=== PATIENT | male | born 1975 | race Two or more races ===

== ENCOUNTER → 2020-06-01 10:41 | Outpatient (BNVA) | payer MEDICAID, SELFPAY | PROVIDERS: PCP Registered Nurse Psychiatric/Mental Health, Adult; Visit Provider Nurse Practitioner Family ==

== ENCOUNTER 2020-09-16 08:48 | Emergency (ER) | payer MEDICAID, SELFPAY ==
--- NOTE | ~2020-09-16 | CT_ITS ---
EXAMINATION: CT HEAD WITHOUT CONTRAST CLINICAL INFORMATION: Dizziness and headache. COMPARISON: None TECHNIQUE: Contiguous axial imaging was performed from the skull base to vertex without intravenous administration of contrast. This CT examination was performed using dose optimization techniques as appropriate, variously including the following: *Automated exposure control *Adjustment of mA and/or kV according to patient size (this includes techniques or standardized protocols for targeted exams where dose is matched to indication/reason for exam; i.e. extremities or head) *Use of iterative reconstruction technique DLP: 705 mGy-cm FINDINGS: There is no evidence of acute intracranial hemorrhage or territorial infarction. No abnormal mass effect or midline shift is seen. [place] to white matter differentiation is well preserved. No extra-axial fluid collections are identified. Posterior to pineal gland is mild linear irregularity question thickening of the dura. The ventricles are normal in size. There is no abnormal attenuation within the brain parenchyma. The osseous structures and soft tissues are normal. The mastoid air cells and visualized portions of the paranasal sinuses are well aerated. CT/CT head/brain wo con IMPRESSION: No acute intracranial process seen.
[2020-09-16 09:11] VITALS: BP 131/84; PULSE 65; RESP 16; TEMP 36.7; O2SAT 98; BMI 29.2
--- NOTE | 2020-09-16 09:17 | ED_ITS ---
HPI - Dizziness General Chief Complaint: Eye Problems Stated Complaint: General Medical Time Seen by Provider: 09/16/20 09:17 Source: patient Mode of arrival: ambulatory Limitations: no limitations History of Present Illness HPI Narrative: 45 yo male here with dizziness since waking at 4am, headache took jerome OBRIEN elicited complaint: dizziness and other (eye pain, headaches feels he cannot focus) Pertinent past history: other (poor vision - has noted his vision has worsened x several months has not been checked out by his eye doctor recently) Onset (ago): day(s) (onset of poor vision x several months but dizziness and inability to focus woke up at 4am with symptoms was normal before bed) Timing: gradual onset and awoke with symptoms Severity: moderate Description: lightheadedness and other (feels his vision is blurry) History of similar symptoms: Yes Exacerbating factors: nothing Relieving factors: nothing Associated symptoms: other (headache, blurry vision, eye pain) Associated neuro symptoms: vision changes (feels he cannot focus) Related Data Home Medications Medication Instructions Recorded Confirmed omega-3 fatty acids 1,000 mg 1,000 mg PO DAILY 06/01/20 06/01/20 capsule vitamin E 100 unit/0.25 mL oral unit PO 06/01/20 06/01/20 drops Previous Rx's Medication Instructions Recorded zkpitrplbk-wqhjxfkfrkorg-lifn 1 tab PO Q6H PRN #20 tab 09/16/20 meclizine 25 mg PO TID PRN #30 tab 09/16/20 Allergies Allergy/AdvReac Type Severity Reaction Status Date / Time No Known Allergies Allergy Unverified 01/01/20 15:52 [No Known Allergies*] Review of Systems Review of Systems: Constitutional : No Fever, No Chills, No Fatigue ENT/Mouth : No sore throat, No Rhinorrhea Eyes: pos Eye Pain, No Swelling, No Redness, pos diff focus Cardiovascular : No Chest Pain, No SOB, No Dyspnea on Exertion Respiratory : No Cough, No Sputum Gastrointestinal : No Nausea, No Vomiting, No Diarrhea, No abdominal Pain Genitourinary : No Dysuria, No Urinary Frequency, No Hematuria, Musculoskeletal : No joint pain, No Myalgias, No Joint Swelling Skin : No Skin Lesions, No rash Neuro : No Weakness, No Numbness, No Dizziness, positive Headache Psych : No Anxiety/Panic, No Depression Heme/Lymph: No Bruising, No Bleeding,No Lymphadenopathy Endocrine : No Polyuria, No Polydipsia All other systems reviewed and are negative [facility] Past Medical History Attestation statement: The following information was validated with the patient. Medical History Diabetes HTN (hypertension) Social History Social History Alcohol intake: never Patient Tobacco Use Status: Never used Tobacco Use of substances other than those prescribed or required for medical reasons: No Advance Directives: No Advance Directives Information Provided: No Physical Exam Vital Signs: Vital Signs: Last Vital Signs Temp 98.0 F 09/16/20 09:44 Pulse 66 09/16/20 09:44 Resp 16 09/16/20 09:44 BP 131/84 09/16/20 09:44 Pulse Ox 100 09/16/20 09:44 Body Mass Index 29.2 Appearance: Alert. Oriented X3. No acute distress. Eyes: Pupils equal, round and reactive to light. no pain to palpation of eyes, no vision changes on exam ENT: Pharynx normal. Neck: Normal inspection. Neck supple. CVS: Normal heart rate and rhythm. Pulses normal. Respiratory: No respiratory distress. Breath sounds normal. Abdomen: Soft and nontender. Skin: Skin warm and dry. Normal skin color. Normal skin turgor. Extremities: No lower extremity edema. No calf ttp Neuro: Oriented X 3. No motor deficit. No sensory deficit. no ataxia steady gait Course Course Course Narrative: R eye pressure 14 L eye pressure 16 R eye with glasses 20/70 L eye with glasses 20/50 feels much better but worse if he puts his glasses on - old prescription has had issues with his eyes for month suspect this is due to his outdated Rx - stable for DC MDM - Dizziness MDM Narrative Medical decision making narrative: 45 yo male with HTN, preidabetic here with dizzy, eye pressure and feels he cannot focus has normal neuro exam, awoke with symptoms at 4am, very vague no acute findings, will obtain basic labs, EKG, CT head, eye pressures, dispo per results and findings. Lab Data Result diagrams: 09/16/20 09:39 09/16/20 09:39 Labs: Lab Results 06/07/0409/16/20 09/16/20 Range/Units 09:39 09:39 09:39 WBC 5.0 (4.8-10.8) X10*3/uL RBC 4.40 L (4.60-5.80) X10*6/uL Hgb 13.2 L (14.0-18.0) g/dl Hct 40.7 L (42-52) % MCV 92.5 (80-98) fL MCH 30.0 (27.0-33.0) pg MCHC 32.4 (31.0-36.0) g/dl RDW 12.8 (11.0-16.0) % Plt Count 225 (160-400) X10*3/uL MPV 10.3 (9.4-12.4) fL Immature Gran % (Auto) 0.2 (0.0-0.4) % Neut % (Auto) 54.9 (45-73) % Lymph % (Auto) 32.3 (20-40) % [place] % (Auto) 8.2 (2-11) % Eos % (Auto) 3.8 (0-4) % Baso % (Auto) 0.6 (0-2) % Lymph # (Auto) 1.6 (1.2-4.9) X10*3/uL [place] # (Auto) 0.4 (0.1-1.2) X10*3/uL Eos # (Auto) 0.2 (0.0-0.4) X10*3/uL Baso # (Auto) 0.0 (0.0-0.2) X10*3/uL Abs Immat Gran (auto) 0.01 (0.00-0.03) X10*3/uL Absolute Neuts (auto) 2.8 (2.0-8.3) X10*3/uL Absolute Nucleated RBC 0.000 (0.0-0.012) X10*3/uL Nucleated RBC % (auto) 0.0 (0.0-0.2) /100WBC Hold Blue Top SEE NOTE Sodium 136 (135-145) mmol/L Potassium 3.8 (3.3-5.1) mmol/L Chloride 103 (96-108) mmol/L Carbon Dioxide 26 (22-29) mmol/L Anion Gap 11 L (12-20) BUN 17 H (9-16) mg/dL Creatinine 0.99 (0.5-1.4) mg/dL Estim Creat Clear Calc 108.6 Estimated GFR > 60 Random Glucose 110 (60-115) mg/dL Calcium 9.5 (8.4-10.2) mg/dL Magnesium 1.9 (1.6-2.6) mg/dL ECG Data Attestation: I personally reviewed and interpreted this ECG as follows: ECG interpretation date: 09/16/20 ECG interpretation time: 09:33 Interpretation: Rate: 60 Rhythm: NSR [place]: normal Normal P waves. Normal DESTINEY. Normal QRS complex. ST T wave : normal no MARCEL qTC: normal prior studies: no acute ischemia The study has been interpreted contemporaneously by me. . Discharge Plan Discharge Clinical Impression: Dizziness Headache Qualifiers: Headache type: unspecified Headache chronicity pattern: acute headache Intra ctability: not intractable Qualified Code(s): R51.9 - Headache, unspecified Patient Disposition: Home, Self-Care Instructions: Acute Headache (ED), Dizziness (ED) Additional Instructions: return to ED for any worsening symptoms or concerns Prescriptions: New wrerfaaukq-jwqnmeovihymw-oebu 50-325-40 mg tablet 1 tab PO Q6H PRN (Reason: pain) Qty: 20 RF: 0 meclizine 25 mg tablet 25 mg PO TID PRN (Reason: dizziness) Qty: 30 RF: 0 No Action omega-3 fatty acids [Fish Oil Concentrate] 1,000 mg capsule 1,000 mg PO DAILY RF: 0 vitamin E 100 unit/0.25 mL drops PO RF: 0 Referrals: Fidel Alba [Physician] - 1 week (try to call for available appointment) Stand Alone Forms: Work/School Release Discharge Date/Time: 09/16/20 12:01
--- NOTE | 2020-09-16 09:18 | ECG_ITS ---
Test Reason : EYE PROBLEM Blood Pressure : / mmHG Vent. Rate : 060 BPM Atrial Rate : 060 BPM P-R Int : 174 ms QRS Dur : 090 ms QT Int : 420 ms P-R-T Axes : 040 030 013 degrees QTc Int : 420 ms Normal sinus rhythm Normal ECG When compared with ECG of 12-NOV-2017 15:21, No significant change was found Referred By: Marion Jack Electronically Signed By:Javier Andujar
[2020-09-16] MEDS: Tetracaine HCl/PF 0.5% Oph Sol 4 ML DROPS 3 DROP EYE-BOTH (09:38)
[2020-09-16] MEDS: Meclizine HCl 25 MG TABLET PO (09:38)
[2020-09-16 09:44] VITALS: BP 131/84; PULSE 66; RESP 16; TEMP 36.7; O2SAT 100
[2020-09-16 09:44] LABS: MANUAL DIFF FLAG NO
[2020-09-16 09:47] LABS: Basophils Percent Auto 0.6 % (0-2); Eosinophils Absolute Auto 0.2 X10*3/uL (0.0-0.4); Eosinophils Percent Auto 3.8 % (0-4); Hematocrit 40.7 % (42-52); Hemoglobin 13.2 g/dl (14.0-18.0); Imm Gran Abs Auto 0.01 X10*3/uL (0.00-0.03); Imm Gran Pct Auto 0.2 % (0.0-0.4); Lymphocytes Absolute Auto 1.6 X10*3/uL (1.2-4.9); Lymphocytes Percent Auto 32.3 % (20-40); Mean Corpuscular HGB Conc 32.4 g/dl (31.0-36.0); Mean Corpuscular Volume 92.5 fL (80-98); Mean Platelet Volume 10.3 fL (9.4-12.4); Monocytes Absolute Auto 0.4 X10*3/uL (0.1-1.2); Monocytes Percent Auto 8.2 % (2-11); Neutrophils Absolute Auto 2.8 X10*3/uL (2.0-8.3); Neutrophils Percent Auto 54.9 % (45-73); Platelet Count 225 X10*3/uL (160-400); Red Cell Distribution Width 12.8 % (11.0-16.0)
--- NOTE | 2020-09-16 09:53 | PC.NURSE ---
r-14 l-16 eye pressure measurement
[2020-09-16 10:14] LABS: Anion Gap 11 (12-20); Blood Urea Nitrogen 17 mg/dL (9-16); Calcium 9.5 mg/dL (8.4-10.2); Carbon Dioxide 26 mmol/L (22-29); Chloride 103 mmol/L (96-108); Creatinine Clr Calc Pharmacy 108.6; Estimated Glomerular Filt Rate > 60; Glucose Random 110 mg/dL (60-115); Magnesium 1.9 mg/dL (1.6-2.6); Potassium 3.8 mmol/L (3.3-5.1); Sodium 136 mmol/L (135-145)
[2020-09-16] MEDS: Butalb/Acetamin/Caff 50/325/40 TABLET 1 TAB PO (11:12)
== END 2020-09-16 12:01 | disposition home or self-care (01) ==
PROVIDERS: Emergency Provider Emergency Medicine
DX: R42 Dizziness and giddiness (principal); R51.9 Headache, unspecified; Z79.899 Other long term (current) drug therapy
CPT/HCPCS: 36415; 70450; 80048; 83735; 85025; 93005; 99284

== ENCOUNTER → 2020-12-14 11:38 | Outpatient (BNVA) | payer MEDICAID, SELFPAY | PROVIDERS: PCP Registered Nurse Psychiatric/Mental Health, Adult; Visit Provider Nurse Practitioner Family ==

== ENCOUNTER 2021-02-07 09:30 | Emergency (ER) | payer MEDICAID, SELFPAY ==
[2021-02-07 09:39] VITALS: BP 147/100; PULSE 67; RESP 18; TEMP 36.1; O2SAT 96; BMI 34.5
--- NOTE | 2021-02-07 10:18 | ED.GENADULT ---
HPI - General Adult General Chief complaint: Dental/Oral Stated complaint: Dental pain Time Seen by Provider: 02/07/21 10:30 Source: patient Mode of arrival: ambulatory Limitations: no limitations History of Present Illness HPI narrative: Patient presents to ED for left lower molar pain the past 3-4 days. Patient denies any facial swelling, recent trauma, fever, chills, headache, nausea, vomiting, neck swelling, drooling, change in voice, chest pain, shortness of breath. He does not have a dentist. Related Data Home Medications Medication Instructions Recorded Confirmed omega-3 fatty acids 1,000 mg 1,000 mg PO DAILY 06/01/20 12/14/20 capsule (Fish Oil Concentrate) vitamin E 100 unit/0.25 mL oral unit PO 06/01/20 12/14/20 drops Previous Rx's Medication Instructions Recorded oiybktobuh-rcnvbdjwuapwr-flmrjvhm 1 tab PO Q6H PRN #20 tab 09/16/20 50 mg-325 mg-40 mg tablet meclizine 25 mg tablet 25 mg PO TID PRN #30 tab 09/16/20 amoxicillin 500 mg capsule 500 mg PO TID 10 Days #30 cap 02/07/21 naproxen 500 mg tablet 500 mg PO BID PRN #20 tab 02/07/21 Allergies Allergy/AdvReac Type Severity Reaction Status Date / Time No Known Allergies Allergy Verified 12/14/20 11:38 [No Known Allergies*] Review of Systems Review of Systems: Yes all other systems are reviewed and are negative Constitutional: Constitutional: Reports as per HPI and Reports no additional constitutional complaints Eyes: Eyes: Reports as per HPI and Reports no additional eye complaints ENT: Reports system reviewed and no additional complaints, except as documented and Reports as per HPI Comments: Dental pain Cardiovascular: Cardiovascular: Reports as per HPI and Reports no additional cardiovascular complaints Respiratory: Respiratory: Reports as per HPI and Reports no additional respiratory complaints Gastrointestinal: Gastrointestinal: Reports as per HPI and Reports no additional gastrointestinal complaints Musculoskeletal: Musculoskeletal: Reports no additional musculoskeletal complaints Neurologic: Reports system reviewed and no additional complaints, except as documented and Reports as per HPI Psychiatric: Psychiatric: Reports no additional psychiatric complaints and Reports as per HPI PMFSH Past Medical History Medical History Diabetes HTN (hypertension) Social History Social History Alcohol intake: never Patient Tobacco Use Status: Never used Tobacco Advance Directives: Yes Advance Directives Information Provided: Yes Advance Directives on File: No Physical Exam Vital Signs: Vital Signs: Last Vital Signs Temp 97.0 F 02/07/21 09:39 Pulse 67 02/07/21 09:39 Resp 18 02/07/21 09:39 BP 147/100 H 02/07/21 09:39 Pulse Ox 96 02/07/21 09:39 Body Mass Index 34.5 Const: General: cooperative, healthy appearing, comfortable, no acute distress, well developed, alert, awake and Physically active Orientation/consciousness: patient oriented x3 HENMT: Head: Yes normal to inspection, Yes No palpable skull fracture present, Yes normocephalic, Yes atraumatic and No abrasion Teeth image: 1. Tender on palpation. Negative for any crack or pus and tooth. Negative for any pus discharge or erythema/swelling of the gum. Throat: Yes posterior oropharynx normal, Yes tonsils normal and Yes uvula midline Eyes: General: appearance normal, both eyes and all related structures Neck: Neck: Yes normal visual inspection, Yes full ROM, Yes no lymphadenopathy, Yes no meningeal signs, Yes trachea midline, Yes supple, No anterior neck swelling and No tender Chest: Chest palpation & inspection: normal inspection of the chest and normal palpation of entire chest wall Resp: Effort & Inspection: normal respiratory effort and able to speak in complete sentences Auscultation: clear to auscultation bilaterally, no crackles, no rales, no rhonchi and no wheezes Cardio: Jugular venous distension: no JVD Heart sounds: S1 normal heart sound present and S2 normal heart sound present GI: Inspection: Yes normal to inspection and No abdominal wall ecchymosis Palpation (GI): not firm, nontender, no guarding and not rigid : General: No CVA tenderness and Yes no CVA tenderness Back/Spine/Pelvis: Back: no CVA tenderness, No CVA tenderness and No back tenderness Skin: General skin exam: no rashes or lesions noted and elasticity normal Neuro: General: patient oriented x3, gait normal, no meningeal signs and CN's II-XI intact bilaterally Cranial nerves: Yes CN's II-XII intact bilaterally Extrem: General: Yes normal to inspection and Yes full ROM Psych: Appearance: grossly normal, well kempt and not disheveled Course Course Course Narrative: Patient nontoxic-appearing stable Reevaluation(s) Reevaluation #1: Not suspecting any retropharyngeal abscess, Nicholas angina, or any oral/facial abscess. Patient will be treated with antibiotic and pain medication. Patient given list of dentists. Time: 10:24 Medical Decision Making MDM Narrative Medical decision making narrative: Dental pain Discharge Plan Discharge Clinical Impression: Toothache Patient Disposition: Home, Self-Care Instructions: Toothache (ED) Additional Instructions: You will be discharge with antibiotic and pain medication for tooth pain. Please follow-up with list of dentists that was given to you for follow-up. Return to the ED for any facial swelling, worsening pain, drooling, change in voice, chest pain, neck swelling, shortness of breath, or any other concerning symptoms. Prescriptions: New amoxicillin 500 mg capsule 500 mg PO TID 10 Days Qty: 30 RF: 0 naproxen 500 mg tablet 500 mg PO BID PRN (Reason: pain) Qty: 20 RF: 0 No Action oauhqngpcd-xorxznduvbgyd-pqxg 50-325-40 mg tablet 1 tab PO Q6H PRN (Reason: pain) Qty: 20 RF: 0 meclizine 25 mg tablet 25 mg PO TID PRN (Reason: dizziness) Qty: 30 RF: 0 omega-3 fatty acids [Fish Oil Concentrate] 1,000 mg capsule 1,000 mg PO DAILY RF: 0 vitamin E 100 unit/0.25 mL drops PO RF: 0 Stand Alone Forms: Work/School Release Interventions: ED Discharge Assessment Last Done: 02/07/21 10:46 Discharge Date/Time: 02/07/21 10:47 Print Language: Hungarian
== END 2021-02-07 10:47 | disposition home or self-care (01) ==
PROVIDERS: Emergency Provider Emergency Medicine; PCP Nurse Practitioner Primary Care
DX: K08.89 Other specified disorders of teeth and supporting structures (principal); E11.9 Type 2 diabetes mellitus without complications; I10 Essential (primary) hypertension
CPT/HCPCS: 99283

== ENCOUNTER 2021-06-03 11:08 | Emergency (ER) | payer MEDICAID, SELFPAY ==
[2021-06-03 11:23] VITALS: BP 136/72; PULSE 74; RESP 18; TEMP 36.9; O2SAT 98; BMI 29.9
== END 2021-06-03 16:41 | disposition left against medical advice (07) ==
PROVIDERS: Emergency Provider Emergency Medicine; PCP Nurse Practitioner Primary Care
DX: S09.90XA Unspecified injury of head, initial encounter (principal); Y00.XXXA Assault by blunt object, initial encounter; Y93.9 Activity, unspecified; Y92.9 Unspecified place or not applicable; Y99.9 Unspecified external cause status
CPT/HCPCS: 99281; 99282

== ENCOUNTER → 2021-06-10 20:49 | Outpatient (REF) | payer MEDICAID, SELFPAY | LOC: HO.SL 20:49 | PROVIDERS: PCP Nurse Practitioner Primary Care; Visit Provider Nurse Practitioner Family | DX: G47.33 Obstructive sleep apnea (adult) (pediatric) (principal) | CPT/HCPCS: 95811 ==

== ENCOUNTER 2022-10-26 09:31 | Outpatient (REF) | payer MEDICAID, SELFPAY ==
[2022-10-26 12:11] LABS: Estimated Average Glucose 114 mg/dL; Hemoglobin A1c % 5.6 %
[2022-10-26 12:12] LABS: Cholesterol 205 mg/dL; HDL Cholesterol 35 mg/dL; LDL Cholesterol Calculated 139 mg/dl; Triglycerides 155 mg/dL
== END 2022-10-26 09:32 | disposition home or self-care (01) ==
LOC: HO.HHCL 09:31
PROVIDERS: Visit Provider Nurse Practitioner Primary Care
DX: E78.1 Pure hyperglyceridemia (principal); R73.01 Impaired fasting glucose
CPT/HCPCS: 36415; 80061; 83036

== ENCOUNTER 2023-04-17 14:18 | Emergency (ER) | payer MEDICAID, SELFPAY ==
[2023-04-17 15:08] VITALS: BP 142/92; PULSE 70; RESP 18; TEMP 36.3; O2SAT 97
[2023-04-17 18:10] LABS: MANUAL DIFF FLAG NO
[2023-04-17 18:25] LABS: Basophils Percent Auto 0.5 % (0-2); Eosinophils Absolute Auto 0.2 X10*3/uL (0.0-0.4); Eosinophils Percent Auto 3.3 % (0-4); Hematocrit 42.6 % (42.0-52.0); Imm Gran Abs Auto 0.03 X10*3/uL (0.00-0.03); Imm Gran Pct Auto 0.5 % (0.0-0.4); Lymphocytes Absolute Auto 2.6 X10*3/uL (1.2-4.9); Lymphocytes Percent Auto 39.9 % (20-40); Mean Corpuscular HGB Conc 32.9 g/dl (31.0-36.0); Mean Corpuscular Hemoglobin 30.3 pg (27.0-33.0); Mean Corpuscular Volume 92.2 fL (80.0-98.0); Mean Platelet Volume 10.7 fL (9.4-12.4); Monocytes Absolute Auto 0.5 X10*3/uL (0.1-1.2); Monocytes Percent Auto 7.6 % (2-11); Neutrophils Absolute Auto 3.2 x10*3/uL (2.0-8.3); Neutrophils Percent Auto 48.2 % (45-73); Platelet Count 255 X10*3/uL (160-400); Red Blood Count 4.62 X10*6/uL (4.60-5.80); Red Cell Distribution Width 13.3 % (11.0-16.0); White Blood Count 6.6 X10*3/uL (4.8-10.8)
[2023-04-17 18:26] LABS: Alanine Aminotransferase 20 U/L (0-40); Albumin Level 4.4 g/dL (3.5-5.0); Alkaline Phosphatase 78 U/L (39-117); Anion Gap 14 (12-20); Aspartate Amino Transferase 21 U/L (5-37); Bilirubin Total 0.5 mg/dL (0.0-1.0); Blood Urea Nitrogen 16 mg/dL (9-16); Calcium 9.7 mg/dL (8.4-10.2); Carbon Dioxide 28 mmol/L (22-29); Chloride 102 mmol/L (96-108); Creatinine Clr Calc Pharmacy 99.2; Estimated Glomerular Filt Rate > 60; Glucose Random 99 mg/dL (60-115); Sodium 140 mmol/L (135-145); Total Protein 9.8 g/dL (6.5-8.0)
[2023-04-17 18:44] LABS: IDNOW Serial# 6674DD1D; Strep A Nucleic Acid Negative (Negative)
[2023-04-17 18:44] LABS: COVID-19 Test Negative (Negative); IDNOW Serial# 08D9AD1C; IDNOW Serial# 9DB6401D; Influenza A Negative (Negative); Influenza B2 Negative (Negative)
[2023-04-18 02:32] VITALS: BP 131/84; PULSE 62; RESP 16; TEMP 36.7; O2SAT 97
--- NOTE | 2023-04-18 02:33 | PC.NURSE ---
Pt offered Tylenol and refused at this time.
--- NOTE | 2023-04-18 05:19 | ED.GENADULT ---
HPI - General Adult General Chief complaint: Fall Stated complaint: Fall/Bilateral leg pain/Trouble swallowing Time Seen by Provider: 04/18/23 04:12 Source: patient and family Mode of arrival: ambulatory History of Present Illness HPI narrative: This is a 48-year-old male who presents with symptoms since 2014 of winter time syncopal episodes. Patient states that he has been evaluated by Neurology, Cardiology, but they can not find anything . He denies any associated fever, chills, nausea, vomiting or any other GI or symptoms. Patient states that he laughs or coughs and then falls down. Patient reports that he has fallen twice without head strike and does not recall the event. Patient endorses that he saw his primary care doctor 2 weeks ago. On further discussion he does endorse that he is under a tremendous amount of stress in acknowledges that there may be a component of anxiety though he denies having suffered from this previously and states that despite this stress he just keeps that all inside . Related Data Home Medications Medication Instructions Recorded Confirmed omega-3 fatty acids 1,000 mg 1,000 mg PO DAILY 06/01/20 12/14/20 capsule (Fish Oil Concentrate) vitamin E 100 unit/0.25 mL oral unit PO 06/01/20 12/14/20 drops Previous Rx's Medication Instructions Recorded yenxpowxvd-fumcpcddvhbrz-ramnvycd 1 tab PO Q6H PRN pain #20 tabs 09/16/20 50 mg-325 mg-40 mg tablet meclizine 25 mg tablet 25 mg PO TID PRN dizziness #30 tabs 09/16/20 amoxicillin 500 mg capsule 500 mg PO TID 10 days #30 caps 02/07/21 naproxen 500 mg tablet 500 mg PO BID PRN pain #20 tabs 02/07/21 Allergies Allergy/AdvReac Type Severity Reaction Status Date / Time No Known Allergies Allergy Verified 12/14/20 11:38 [No Known Allergies*] Review of Systems Review of Systems: Pertinent positives and negatives as stated in the [facility] Past Medical History Source: nursing notes reviewed Onset Date is defined in the Problem List Problems that require an onset date and time if occurred within 24 hrs of arrival to the ED Aortic Dissection and Rupture; Neurologic impairment; Cardiopulmonary Arrest; Endotracheal Intubation; Insertion or Replacement of Mechanical Circulatory Assist Device Medical History Diabetes HTN (hypertension) Social History Social History Alcohol intake: never Patient Tobacco Use Status: Never used Tobacco Advance Directives: No Advance Directives Information Provided: No Physical Exam ED Vital Signs: Vital Signs - 24 hr 04/17/23 15:08 04/18/23 02:32 Temperature 97.4 F 98.0 F Pulse Rate 70 62 Respiratory Rate 18 16 Blood Pressure 142/92 H 131/84 Pulse Oximetry 97 97 Oxygen Delivery Method Room Air Room Air BMI result Body Mass Index 30.0 VITAL SIGNS: Reviewed. GENERAL: Well developed, well nourished, in no acute distress. HEAD: Normocephalic/atraumatic EYES: PERRLA, EOMI intact without pain, no nystagmus/pallor/icterus noted EARS: Ext canals without abnormality, TMs non-bulging and non-erythematous NOSE: Nares patent bilateral OROPHARYNX: no oral lesions noted, posterior pharynx clear and non-erythematous without noted tonsillar enlargement/erythema/exudates NECK: Supple, no adenopathy LUNGS: Normal breath sounds. No adventitious sounds or accessory muscle use. SpO2<97> CARDIOVASCULAR: Regular rate and rhythm without noted murmurs, no JVD or lower extremity edema. ABDOMEN: Soft, non-tender, non-distended with bowel sounds. No rigidity. No guarding. No palpable masses or hernias noted MUSCULOSKELETAL: No tenderness, deformities, or effusions noted on gross inspection. EXTREMITIES: No cyanosis, clubbing or edema. SKIN: Inspection of the skin reveals no rashes, ulcerations, jaundice, pallor, or petechiae. NEUROLOGIC: Alert and oriented x 4. Strength and sensation to light touch were grossly intact x 4, no facial asymmetry, no pronator drift, cranial nerves 2-12 are grossly intact. Medical Decision Making Medical Decision Making MDM Narrative: 48-year-old male with history and clinical presentation suspicious for panic attack or panic disorder, there is also the possibility SAD. Do seem that patient has been worked up previously by both Neurology and Cardiology with whom I would suspect would be the primary specialties for patient's current condition. There are no clinical findings to suggest underlying neurologic dysfunction such as ALS. I reviewed all investigations and hematologic indices are grossly within normal limits without any noted derangements. On review of all chemistry indices they were grossly within normal limits although there is a noted protein level of 9.8. Viral serology to include rapid strep is negative. My interpretation is that patient is suffering from a component of stress/panic disorder but given the elevated protein levels there are alternate medical conditions that could be explored although unsure of history. I have lower clinical suspicion for something like multiple myeloma without any corresponding bony pain or laboratory findings of anemia, there is a possibility of MGUS or other antibody related issue. However, it was explained to the patient that there is no further workup indicated here and he was strongly encouraged to follow-up with his primary care doctor in reassured that I would be copying my note over to that provider and that he should also consider his current stress levels and that it was unhealthy to hold all of that inside. He is otherwise well appearing and hemodynamically stable. There are no neurologic findings. Differential Diagnosis Differential Diagnoses: The differential diagnosis associated with the presentation includes Please see the discussion above Admission/Observation Consideration of admission/observation: Escalation of care including admission/observation considered Please see the discussion above Lab Data MDM Lab Attestation statement: I reviewed the patient's lab results. Please see the discussion above 04/17/23 18:03 04/17/23 18:03 Labs: Lab Results 04/17/23 04/17/23 Range/Units 18:03 18:11 WBC 6.6 (4.8-10.8) X10*3/uL RBC 4.62 (4.60-5.80) X10*6/uL Hgb 14.0 (14.0-18.0) g/dl Hct 42.6 (42.0-52.0) % MCV 92.2 (80.0-98.0) fL MCH 30.3 (27.0-33.0) pg MCHC 32.9 (31.0-36.0) g/dl RDW 13.3 (11.0-16.0) % Plt Count 255 (160-400) X10*3/uL MPV 10.7 (9.4-12.4) fL Immature Gran % (Auto) 0.5 H (0.0-0.4) % Neut % (Auto) 48.2 (45-73) % Lymph % (Auto) 39.9 (20-40) % [place] % (Auto) 7.6 (2-11) % Eos % (Auto) 3.3 (0-4) % Baso % (Auto) 0.5 (0-2) % Lymph # (Auto) 2.6 (1.2-4.9) X10*3/uL [place] # (Auto) 0.5 (0.1-1.2) X10*3/uL Eos # (Auto) 0.2 (0.0-0.4) X10*3/uL Baso # (Auto) 0.0 (0.0-0.2) X10*3/uL Abs Immat Gran (auto) 0.03 (0.00-0.03) X10*3/uL Absolute Neuts (auto) 3.2 (2.0-8.3) x10*3/uL Absolute Nucleated RBC 0.000 (0.0-0.012) X10*3/uL Nucleated RBC % (auto) 0.0 (0.0-0.2) /100WBC Sodium 140 (135-145) mmol/L Potassium 4.0 (3.3-5.1) mmol/L Chloride 102 (96-108) mmol/L Carbon Dioxide 28 (22-29) mmol/L Anion Gap 14 (12-20) BUN 16 (9-16) mg/dL Creatinine 1.06 (0.5-1.4) mg/dL Estim Creat Clear Calc 99.2 Estimated GFR > 60 Random Glucose 99 (60-115) mg/dL Calcium 9.7 (8.4-10.2) mg/dL Total Bilirubin 0.5 (0.0-1.0) mg/dL AST 21 (5-37) U/L ALT 20 (0-40) U/L Alkaline Phosphatase 78 (39-117) U/L Total Protein 9.8 H (6.5-8.0) g/dL Albumin 4.4 (3.5-5.0) g/dL COVID-19 (ANGELITO) Negative (Negative) COVID-19 Clin Com See Note Influenza Type A (GARCIA) Negative (Negative) Influenza Type B (GARCIA) Negative (Negative) Influenza A & B Note See Note S. pyogenes GrpA GARCIA Negative (Negative) External Record Review External record reviewed: Outpatient record, Prior outpatient labs and Prior outpatient radiology Critical Care Time Critical Care Time Critical Care Time: Yes Total Critical Care Time: 30 Attestation: I personally attest to this time spent taking care of the patient. Discharge Plan Discharge Clinical Impression: Anxiety, Stress, Panic attack Patient Disposition: Home, Self-Care Instructions: Stress (ED), Panic Disorder (ED), Anxiety (ED) Additional Instructions: 1. I strongly recommend follow-up with your primary care doctor for further evaluation regarding your symptoms and the possibility that this is associated with anxiety and stress. Your workup here today did not demonstrate any evidence of electrolyte abnormalities, infection, or anemia. Prescriptions: No Action qwhexctzhn-brfldtpwnzwow-wjxf 50-325-40 mg tablet 1 tab PO Q6H PRN (Reason: pain) Qty: 20 0RF meclizine 25 mg tablet 25 mg PO TID PRN (Reason: dizziness) Qty: 30 0RF amoxicillin 500 mg capsule 500 mg PO TID 10 Days Qty: 30 0RF naproxen 500 mg tablet 500 mg PO BID PRN (Reason: pain) Qty: 20 0RF omega-3 fatty acids [Fish Oil Concentrate] 1,000 mg capsule 1,000 mg PO DAILY vitamin E 100 unit/0.25 mL drops PO Referrals: Amy Moody, [employer] [Primary Care Provider] - Stand Alone Forms: Work/School Release Interventions: ED Discharge Assessment Last Done: 04/18/23 05:43 Discharge Date/Time: 04/18/23 05:48
== END 2023-04-18 05:48 | disposition home or self-care (01) ==
PROVIDERS: Emergency Provider Student in an Organized Health Care Education/Training Program; PCP Nurse Practitioner Primary Care
DX: F41.9 Anxiety disorder, unspecified (principal); F43.9 Reaction to severe stress, unspecified; F41.0 Panic disorder [episodic paroxysmal anxiety]; Z11.52 Encounter for screening for COVID-19; E11.9 Type 2 diabetes mellitus without complications; I10 Essential (primary) hypertension; Z79.899 Other long term (current) drug therapy
CPT/HCPCS: 80053; 85025; 87502; 87635; 87651; 99283

== ENCOUNTER 2023-05-18 14:31 | Outpatient (REF) | payer MEDICAID, SELFPAY ==
--- NOTE | ~2023-05-18 | XR_ITS ---
EXAMINATION: XR CHEST CLINICAL INFORMATION: Chronic cough COMPARISON: Previous chest x-ray August 2019 TECHNIQUE: 2 views of the chest were obtained. FINDINGS: No significant abnormality is noted involving the heart, lungs, mediastinum, bony thorax or soft tissues. Degenerative changes of the spine. XR/XR chest 2V IMPRESSION: Unremarkable examination.
[2023-05-18 16:27] LABS: Hematocrit 40.7 % (42.0-52.0); Hemoglobin 13.1 g/dl (14.0-18.0); Mean Corpuscular HGB Conc 32.2 g/dl (31.0-36.0); Mean Corpuscular Hemoglobin 30.2 pg (27.0-33.0); Mean Corpuscular Volume 93.8 fL (80.0-98.0); Mean Platelet Volume 10.6 fL (9.4-12.4); Platelet Count 221 X10*3/uL (160-400); Red Blood Count 4.34 X10*6/uL (4.60-5.80); Red Cell Distribution Width 13.1 % (11.0-16.0); White Blood Count 4.6 X10*3/uL (4.8-10.8)
[2023-05-18 16:39] LABS: Estimated Average Glucose 120 mg/dL; Hemoglobin A1c % 5.8 % (<6.0)
[2023-05-18 16:46] LABS: Alanine Aminotransferase 22 U/L (0-40); Albumin Level 4.1 g/dL (3.5-5.0); Alkaline Phosphatase 85 U/L (39-117); Anion Gap 10 (12-20); Aspartate Amino Transferase 23 U/L (5-37); Bilirubin Total 0.8 mg/dL (0.0-1.0); Blood Urea Nitrogen 14 mg/dL (9-16); C Reactive Protein 0.96 mg/dL (< or = 0.50); Calcium 9.1 mg/dL (8.4-10.2); Carbon Dioxide 26 mmol/L (22-29); Chloride 105 mmol/L (96-108); Estimated Glomerular Filt Rate > 60; Glucose Random 97 mg/dL (60-115); Potassium 4.1 mmol/L (3.3-5.1); Sodium 137 mmol/L (135-145); Total Protein 9.1 g/dL (6.5-8.0)
[2023-05-18 17:02] LABS: TSH reflex Free T4 0.56 uIU/mL (0.32-4.0)
[2023-05-19 04:14] LABS: Syphilis Screen Nonreactive (Nonreactive)
[2023-05-19 04:29] LABS: HBsAGNum1 0.35 S/CO (0.00-0.99); HIV AB/AG Nonreactive (Nonreactive); HIV Num 1 0.09 S/CO (0.00-0.99); Hepatitis B Surface Antigen Negative (Negative); ~Hepatitis C Antibody Nonreactive (Nonreactive)
== END 2023-05-18 14:32 | disposition home or self-care (01) ==
LOC: HO.HHCX 14:31
PROVIDERS: Visit Provider Student in an Organized Health Care Education/Training Program
DX: R05.2 Subacute cough (principal); R53.1 Weakness
CPT/HCPCS: 36415; 71046; 80053; 83036; 84443; 85027; 86140; 86780; 86803; 87340; 87389

== ENCOUNTER 2023-06-28 15:25 | Outpatient (AMB) | payer MEDICAID, SELFPAY ==
--- NOTE | 2023-06-28 15:27 | A.OFFVIS_ITS ---
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 still have the old CPAP model. Allergies No Known Allergies [No Known Allergies*] Allergy (Verified 06/28/23 15:34) HPI HPI Comments History of Present Illness Details 48 y/o male patient presents for follow up of SIOMARA on CPAP. Pt's last visit was Nov, 2020. Pt also had a repeat sleep study done in 2021. The Split night sleep study result reviewed. The baseline portion of the sleep study was significant for a severe degree of sleep apnea. The AHI was 80/hr, and oxygen leia was 80%. Pt was recommended CPAP at 8cmH2O. Pt reports that he uses CPAP every night, but makes it makes his mouth very dry. And he feels the pressure is not really right. He sleeps well overall, but still has non refreshing sleep, feel tired in the morning, frequently fall asleep during daytime. CPAP compliance is not available, requested from [facility] multiple times, but [facility] did not send it. Pt does not use [facility], and unable to see the CPAP therapy response. What is your usual sleep routine? Usual bedtime is at 9 pm; Usual wake up time is at 5 am. Do you take naps? Yes, little naps multiple tmes. Is your sleep environment cool, dark, and quiet? Yes. Do you exercise? Yes. Do you take caffeine or other stimulants? No. Do you use electronics in bed? Yes. [facility] Medical History Diabetes HTN (hypertension) Social History Alcohol intake: never Patient Tobacco Use Status: Never used Tobacco Review of Systems Const All systems reviewed & are unremarkable except as noted in HPI and below Physical Exam Vital Signs: Last Vital Signs Pulse 67 06/28/23 15:36 BP 124/80 06/28/23 15:36 Pulse Ox 97 06/28/23 15:36 Oxygen Delivery Method Room Air 06/28/23 15:36 BMI result Body Mass Index 29.9 Const General: cooperative Nutritional Appearance: overweight Orientation/consciousness: patient oriented x3 Neck Neck: Yes full ROM and Yes supple Resp Effort & Inspection: normal respiratory effort and able to speak in complete sentences Neuro General: patient oriented x3 and gait normal Cranial nerves: Yes CN's II-XII intact bilaterally Cognition (Neuro): normal cognition Gait exam (Neuro): Normal gait present Motor exam (neuro): 5/5 motor strength present throughout Psych Appearance: grossly normal Mental Status: mental status grossly normal Speech and movement: Normal speech and movement present Affect: normal affect Assessment & Plan Assessment & Plan (1) Severe obstructive sleep apnea: Comment: AHI 80/hr, O2 leia 80% Code(s): G47.33 - Obstructive sleep apnea (adult) (pediatric) Plan Continue to use CPAP nightly and more than 4 hrs. Will request again from [facility] for compliance and therapy response. Sleep hygiene education provided, limit electronic use before bedtime and try not to take a nap during daytime. Advised patient to try mangesium 400 mg along with melatonin 3-9 mg qHS to sleep better. Medications: New magnesium oxide 400 mg PO DAILY 30 days 30 tabs 3RF melatonin 1-3 tabs orally bedtime PRN; 30 days 90 tabs 1RF sleep Coding Level of Care Code Est Pt Level 3 (81039) Diagnoses Severe obstructive sleep apnea G47.33
[2023-06-28 15:36] VITALS: BP 124/80; PULSE 67; O2SAT 97; BMI 29.9
== END 2023-06-28 16:02 | disposition home or self-care (01) ==
PROVIDERS: PCP Nurse Practitioner Primary Care; Visit Provider Nurse Practitioner Family
DX: G47.33 Obstructive sleep apnea (adult) (pediatric) (principal)
CPT/HCPCS: 99213

== ENCOUNTER → 2023-06-28 15:25 | Outpatient (BNVA) | payer MEDICAID, SELFPAY | PROVIDERS: PCP Nurse Practitioner Primary Care; Visit Provider Nurse Practitioner Family | DX: G47.33 Obstructive sleep apnea (adult) (pediatric) (principal); Z99.89 Dependence on other enabling machines and devices | CPT/HCPCS: 99212 ==

== ENCOUNTER 2023-11-02 11:10 | Outpatient (AMB) | payer MEDICAID, SELFPAY ==
--- NOTE | 2023-11-02 11:12 | A.OFFVIS_ITS ---
Vital Signs 11/02/23 11:14 Height 5 ft 11 in Weight 207 lb BMI 28.9 BP 122/82 Blood Pressure Location Rt brachial Position Sitting Pulse 64 Pulse Source Pulse Oximeter Pulse Oximetry (%) 97 Oxygen Delivery Method Room Air Intake Visit Reasons: 4 mo f/u- Confirmed Intake Note: Patient presents for 4 month follow up. Patient having issues with machine he feels the air is coming out flat or dry Allergies No Known Allergies [No Known Allergies*] Allergy (Verified 11/02/23 11:15) Medication List - Last Reconciled 11/02/23 by PUJA Qiu amoxicillin 500 mg PO TID 10 days jrxsepmlyj-mssetfvzskghw-nfoa 50-325-40 mg 1 - 2 tabs PO Q4-6H PRN 7 days magnesium oxide 400 mg PO DAILY 30 days meclizine 25 mg PO TID PRN melatonin 1-3 tabs orally bedtime PRN; 30 days naproxen 500 mg PO BID PRN omega-3 fatty acids (Fish Oil Concentrate) 1,000 mg PO DAILY riboflavin (vitamin B2) 400 mg PO DAILY 30 days sumatriptan succinate 50 - 100 mg orally at onset of headache, may repeat in 2 hrs PRN; max 2 tabs per day or 4 tabs/week (may take with Ibuprofen) 30 days vitamin E units PO HPI Comments Details: 48-yr-old male presents for f/u visit of SIOMARA. Pt reports he has recently recovered from a bad bout of Covid-19, and states he is now feeling better from this. He states that overall he is feeling worse. He is using his old APAP machine, but it is not recording how long he typically uses it and feels the air coming through does not feel clean anymore. States on nights that he uses it, he uses it x's 8 plus hours. Sometimes, he tries to put on his CPAP, and falls asleep with the mask in his hands before he even puts the mask on. He states that he is having even more episodes of falling asleep when inactive. His most recent 90 day compliance report shows overall use 32% and residual AHI < 2/hr. Review of chart shows an in-lab split night PAP titration study in 2021 which showed AHI 80/hr, REM AHI 50/hr, w/ O2 leia 80% (SpO2 < 88% x's < 5min, and sleep onset of 0.4 minutes and REM sleep onset of 4.5 minutes. Pt endorses episodes of passing out when laughing since childhood. States this was better controlled last year, but has been worse in the past year. He denies h/o EBV infection. He denies family h/o narcolepsy or cataplexy. He also notes chronic near daily stabbing and pressure headcahe a/w mild photo/phonophobia and activity intolerance. [facility] Medical History Diabetes HTN (hypertension) Social History Alcohol intake: never Patient Tobacco Use Status: Never used Tobacco Physical Exam Vital Signs: Last Vital Signs Pulse 64 11/02/23 11:14 BP 122/82 11/02/23 11:14 Pulse Ox 97 11/02/23 11:14 Oxygen Delivery Method Room Air 11/02/23 11:14 BMI result Body Mass Index 28.9 Const General: cooperative and no acute distress Orientation/consciousness: patient oriented x3 Resp Effort & Inspection: normal respiratory effort and able to speak in complete sentences Neuro General: patient oriented x3 Cranial nerves: Yes CN's II-XII intact bilaterally Cognition (Neuro): normal cognition Psych Appearance: grossly normal Mental Status: mental status grossly normal Speech and movement: Normal speech and movement present Affect: normal affect Attitude: cooperative Assessment & Plan Assessment & Plan (1) Excessive daytime sleepiness: Code(s): G47.19 - Other hypersomnia Category: Medical (2) Cataplexy: Comment: episodes of passing out when laughing since childhood a/w EDS Code(s): 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 Pt thus advsied to undergo LP for baseline CSF studies and ORXNA- Orexin-A/Hypocretin-1, Spinal Fluid level. Post-LP care reviewed w/ pt: rest, fluids, caffeine, prn Fioricet. Information shared with pt to learn more about narcolepsy and cataplexy s/s. For SIOMARA: Pt should continue PAP tx, I suspect pt's compliance is limited d/t excessive daytime sleepiness r/t suspected narcolepsy. Will request new PAP machine set to CPAP 8 cmH2O. For headache c/w chronic migraine w/o aura: Trial Riboflavin 400mg qam and Mag Ox 400mg qhs. Trial Sumatriptan 100mg tab, 1/2 - 1 tab (50-100mg) at onset of headache, may repeat in 2 hours. Max of 2 tabs (200mg) per 24 hours. May adjunct with OTC Tylenol 650mg q 4 hours, Ibuprofen 600mg q 6 hours, or Naproxen 440mg q 12 hrs prn. 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 CSF Total Protein Today G47.19 - Other hypersomnia, G47.411 - Narcolepsy with cataplexy Medications: New sumatriptan succinate (0.5 - 1 x 100 mg) 50 - 100 mg orally at onset of headache, may repeat in 2 hrs PRN; max 2 tabs per day or 4 tabs/week (may take with Ibuprofen) 30 days 12 tabs 6RF migraine headache riboflavin (vitamin B2) 400 mg PO DAILY 30 days 30 tabs 6RF Changed From gtuvgpadca-lrnicebeeqmke-gxjn 50-325-40 mg 1 tab PO Q6H PRN 20 tabs 0RF pain To zimjssryyo-azojmvjcpcnrb-vjlb 50-325-40 mg 1 - 2 tabs PO Q4-6H 7 days PRN 28 tabs 0RF post Lumbar puncture Headache Refilled magnesium oxide 400 mg PO DAILY 30 days 30 tabs 6RF Coding Level of Care Code Est Pt Level 4 (87364) Diagnoses Excessive daytime sleepiness G47.19 Cataplexy G47.411 Severe obstructive sleep apnea G47.33 Chronic migraine without aura G43.706
[2023-11-02 11:14] VITALS: BP 122/82; PULSE 64; O2SAT 97; BMI 28.9
== END 2023-11-02 12:25 | disposition home or self-care (01) ==
PROVIDERS: PCP Nurse Practitioner Primary Care; Visit Provider Nurse Practitioner Family
DX: G47.19 Other hypersomnia (principal); G47.411 Narcolepsy with cataplexy; G47.33 Obstructive sleep apnea (adult) (pediatric); G43.709 Chronic migraine without aura, not intractable, without status migrainosus
CPT/HCPCS: 99214

== ENCOUNTER → 2023-11-02 11:10 | Outpatient (BNVA) | payer MEDICAID, SELFPAY | PROVIDERS: PCP Nurse Practitioner Primary Care; Visit Provider Nurse Practitioner Family | DX: G47.33 Obstructive sleep apnea (adult) (pediatric) (principal); G47.19 Other hypersomnia; G47.411 Narcolepsy with cataplexy; G43.709 Chronic migraine without aura, not intractable, without status migrainosus; Z99.89 Dependence on other enabling machines and devices | CPT/HCPCS: 99212 ==

== ENCOUNTER 2024-01-04 10:21 | Day surgery (SDC) | payer MEDICAID, SELFPAY ==
--- NOTE | ~2024-01-04 | FL_ITS ---
FLUOROSCOPIC GUIDED LUMBAR PUNCTURE INDICATION: Hypersomnia TECHNIQUE: Risks and benefits and possible complications were discussed with the patient and the consent form was signed. Patient was placed prone on the fluoroscopy table. The back was prepped and draped in routine sterile fashion. Betadine was used as a skin antiseptic. Utilizing fluoroscopic guidance, the L4-5 interlaminar space was accessed with a 22 gague Shira spinal needle and clear CSF fluid was obtained. 8 cc of fluid was sent for analysis. The needle was removed without immediate complications. Total fluoroscopy time: 15 seconds FL/FL guided lumbar puncture LP IMPRESSION: -Successful fluoroscopic L4-5 lumbar puncture This procedure was performed by Aldair Lawson PA-C and supervised by Dr. Duran. Electronically signed by: Billy Duran MD 01/07/2024 12:56 PM EDT
[2024-01-04 10:59] VITALS: BP 129/88; PULSE 59; RESP 14; TEMP 36.3; O2SAT 97; BMI 28.0
[2024-01-04 11:07] LABS: Glucose, Whole Blood 106 mg/dL (60-115)
[2024-01-04 11:50] VITALS: BP 133/84; PULSE 60; RESP 16; TEMP 36.5; O2SAT 97
[2024-01-04 12:05] VITALS: BP 125/81; PULSE 56; RESP 16; O2SAT 97
[2024-01-04 12:23] VITALS: BP 134/83; PULSE 52; RESP 17; TEMP 36.4; O2SAT 97
[2024-01-04 12:48] LABS: CSF Appearance Clear, Colorless; CSF Tube # 1
[2024-01-04 12:55] LABS: Glucose CSF 63 mg/dL; Total Protein CSF 30.7 mg/dL (15-45)
[2024-01-04 14:26] LABS: Appearance CSF CLEAR; CSF Monos 4 %; Color CSF COLORLESS; Lymphocytes CSF 96 %
[2024-01-04 14:27] LABS: CSF Tube # 4; Red Blood Cell CSF 0 MM*3; White Blood Cell CSF 5 MM*3
== END 2024-01-04 12:28 | disposition home or self-care (01) ==
PROVIDERS: Physician Assistant Surgical; PCP Nurse Practitioner Primary Care; Visit Provider Nurse Practitioner Family
PROC: 009U3ZZ Drainage of Spinal Canal, Percutaneous Approach (ICD-10-PCS; CPT 62270; principal; 2024-01-04 11:00)
DX: G47.19 Other hypersomnia (principal); G47.411 Narcolepsy with cataplexy; G47.33 Obstructive sleep apnea (adult) (pediatric); G43.709 Chronic migraine without aura, not intractable, without status migrainosus; I10 Essential (primary) hypertension; E11.9 Type 2 diabetes mellitus without complications; Z79.899 Other long term (current) drug therapy; Z79.1 Long term (current) use of non-steroidal anti-inflammatories (NSAID); Z99.89 Dependence on other enabling machines and devices
CPT/HCPCS: 62328; 82945; 82947; 83519; 84157; 87015; 87070; 87205; 89051

== ENCOUNTER → 2024-01-04 10:44 | Outpatient (BNV) | payer SELFPAY | PROVIDERS: PCP Nurse Practitioner Primary Care; Visit Provider Radiology Diagnostic Radiology | DX: G47.10 Hypersomnia, unspecified (principal) | CPT/HCPCS: 62328 ==

== ENCOUNTER 2024-06-17 11:22 | Outpatient (REF) | payer MEDICAID, SELFPAY ==
--- NOTE | ~2024-06-17 | XR_ITS ---
EXAMINATION: XR LUMBOSACRAL SPINE CLINICAL INFORMATION: 3 weeks l spine pain and muscle spasm COMPARISON: December 04, 2017. TECHNIQUE: Three views of the lumbosacral spine. FINDINGS: Mild multilevel marginal osteophyte formation and endplate sclerosis lower thoracic spine and lower lumbar spine. Facet joint hypertrophy L5-S1. No acute cortical disruption or gross malalignment. No lytic or blastic lesions. XR/XR lumbar spine 2-3V IMPRESSION: Spondylosis, mild. Electronically signed by: Guido Ivy MD 06/17/2024 12:30 PM [place]
--- OUTSIDE RECORDS SUMMARY | 2024-06-17 14:19 | XMS_ITS | Clinical Summary ---
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 90 capsule 3 3 Active Additional Information Patient not taking.Reported on 02/28/2024 albuterol 108 (90 Base) MCG/ACT inhalerIndicati ons:Subacute cough Inhale 2 puffs every 6 (six) hours if needed for wheezing. 18 g 11 4 Active fluticasone (Flonase) 50 MCG/ACT nasal spray Administer 1-2 sprays into each nostril in the morning for 14 days. Shake gently. Before first use, prime pump. After use, clean tip and replace cap. 16 g 4 Active omega-3 1000 MG capsule capsuleIndicati ons:Hypertrigly ceridemia Take 1 capsule (1,000 mg) by mouth in the morning. 90 capsule 3 4 Active Nirmatrelvir&Ri tonavir 300/100 (Paxlovid, 300/100,) 20 x 150 MG & 10 x 100MG tablet therapy packIndications :Infection caused by 2019 Novel Coronavirus Take 3 tablets by mouth 2 times daily. Take 2 tabs (300mg of nirmatrelvir) and 1 tab (100mg of ritonavir) PO BID for 5 days. No renal failure. Possible medication interactions reviewed. 30 each 4 Active Additional Information Patient not taking.Reported on 02/28/2024 riboflavin (Vitamin B-2) 400 MG tablet Take 1 tablet by mouth Once per day. 4 Active Multiple Vitamins-Minera ls (Oncovite) tablet Take 1 tablet by mouth Once per day. Active nabumetone (Relafen) 500 MG tabletIndicatio ns:Back muscle spasm Take 1 tablet (500 mg) by mouth 2 times daily. 60 tablet 11 5 06/18/19 26 Active ibuprofen 800 MG tabletIndicatio ns:Back muscle spasm Take 1 tablet (800 mg) by mouth every 8 (eight) hours if needed for moderate pain or fever. 30 tablet 5 07/18/19 25 Active lidocaine (Lidoderm) 5 % patchIndication s:Back muscle spasm Apply 1 patch topically Once per day. Remove & discard patch within 12 hours or as directed by MD. 15 patch 2 5 Active Active Problems Problem Noted Date Diagnosed Date Back muscle spasm 06/17/2024 Assessment & Plan (06/17/2024 1:00 PM EST): Severe muscle spasms in mid back, right worse than left, visible with naked eye without palpation. Spasms and tenderness in low back paraspinally. -ordered lumbar XRs -prescribed high dose ibuprofen and abumetone (Relafen) 500 MG for pain and spasms. Also prescribed lidocaine (Lidoderm) 5 % patch. -has tried muscle relaxer's without persistent relief -referred to PT Addendum FINDINGS: Mild multilevel marginal osteophyte formation and endplate sclerosis lower thoracic spine and lower lumbar spine. Facet joint hypertrophy L5-S1. No acute cortical disruption or gross malalignment. No lytic or blastic lesions. Weakness 05/19/2023 Assessment & Plan (05/19/2023 6:51 PM EST): Pt reports feeling unwell w mx complaints non specific symptoms Examination today is normal ,denies risk factors -repeat CBC,chem ,STI labs,TSH ,CRP, if again elevated today protein will need SPEP ,UPEP ,UA studies -CXR to be done today -flonase to be prescribed as trial for possible postnasal drip,sinus congestion? Causing some of symptoms -if no better will need to do image of brain/ ENT referral -trial w albuterol prn for ongoing cough -if ongoing dizziness will need to consdier cards workup ? -f w PCP --Has apt in 3 weeks -alamr signs and symptoms discussed w pt in length Obstructive sleep apnea syndrome 07/04/2022 Cardiomegaly 07/04/2022 Pityriasis versicolor 04/25/2018 Hypertriglyceridemia 11/09/2017 Impaired fasting glucose 11/09/2017 Prehypertension 11/09/2017 Assessment & Plan (05/19/2023 6:46 PM EST): -reports has some elevated BP at home -advied to bring home BP readings and to f w PCP -has apt for this month Vitamin D deficiency 11/09/2017 Intractable migraine with aura without status mi grainosus 06/11/2017 Bilateral carpal tunnel syndrome 01/22/2015 Overview (07/04/2022): EMG studies done 01/2015 showed moderate severity bilateral carpal tunnel syndrome. Refer to a hand specialist Obesity (BMI 30.0-34.9) 02/12/2014 Encounters Date Type Department Care Team Description 06/17/2024 10:40 AM EST Office Visit [facility] [address] [place] [address] Cony Thomas MD Back muscle spasm (Primary Dx) 06/17/2024 Telephone [facility] [address] [place] [address] Amy Moody ANP Call Back Request 04/21/2024 Telephone [facility] [address] [place] [address] Piotr Looney DDS from Last 3 Months Immunizations Name Administration Dates Next Due Influenza injectable quadriv alent preservative free 02/05/2020,02/20/2019,04/25/2018 Influenza, IIV3, injectable 04/02/2017, 6,02/12/2014 Jonathan SARS-CoV-2 Vaccination 09/22/2020 Moderna Covid-19 Vaccine 12+ 04/18/2021 Tdap 03/28/2016 Family History Medical History Relation Name Comments Coronary artery disease Father Alzheimer's disease Mother Relation Name Status Comments Father Mother Social History Tobacco Use Types Packs/Day Years Used Date Smoking Tobacco: Never Smokeless Tobacco: Never Tobacco Cessation:Counseling Given: Not Answered Alcohol Use Standard Drinks/Week Comments Never 0 (1 standard drink = 0.6 oz pur e alcohol) Depression Answer Date Recorded Patient Health Questionnaire-9 Score 7 07/04/2022 Housing Stability Answer Date Recorded What is your housing situation today? I have julianne bueno 02/12/[address] you li ve. Do you have problems with any of the following? None of the above 02/12/2023 Food Insecurity Answer Date Recorded Within the past 12 months, y ou worried that your food would run out before you got money to buy more: Never True 02/12/2023 Within the past 12 months,th e food you bought just didn't last and you didn't have enough money to get more: Never True Transportation Answer Date Recorded In the past 12 months, has l ack of transportation kept you from medical appts, meetings, work or from getting things needed for daily living? No 02/12/2023 Utilities Answer Date Recorded In the past 12 months, has t he electric, gas, oil or water company threatened to shut off services in your home? No 02/12/2023 Depression Answer Date Recorded Patient Health Questionnaire-2 Score 2 07/04/2022 Sex and Gender Information Value Date Recorded Sex Assigned at Male 02/13/2022 10:16 AM EDT Legal Sex Male 10:16 AM EDT Gender Identity Male 02/13/2022 10:16 AM EDT Sexual Orientation Straight 02/13/2022 10 :16 AM EDT Last Filed Vital Signs Vital Sign Reading Time Taken Comments Blood Pressure 138/84 06/17/2024 10:33 AM EST Pulse 72 06/17/2024 10:33 AM EST Temperature 37.2 ??C (98.9 ??F) 06/17/2024 10:[address] Respiratory Rate 18 06/17/2024 10:33 AM EST Oxygen Saturation 96% 06/17/2024 10:33 AM EST Inhaled Oxygen Concentration - - Weight 93.4 kg (206 lb) 06/17/2024 10:33 AM EST Height 180.3 cm (5' 11 ) 06/07/2023 1:57 PM EST Body Mass Index 28.73 06/07/2023 1:57 PM EST Plan of Treatment Upcoming Encounters Date Type Department Care Team (Late st Contact Info) Description 07/30/2024 3:15 PM EDT Office Visit [facility] [address] [place] [address] Amy Moody, ANP [address] [place] [address] Health Maintenance Due Date Last Done Comments CT Colonography 1973 Colonoscopy 1973 Colorectal Cancer Screening 1973 Dental Prophylaxis 1973 FIT DNA/Cologuard 1973 FIT 1973 FOBT 1973 Sigmoidoscopy 1973 Alcohol/Substance Use Screening 1985 Family Planning (PISQ) 1988 Hepatitis B Vaccines (1 of 3 - 19+ 3-dose series) 1992 Pneumococcal Vaccine: 50+ Years (1 of 1 - PCV) 2023 Zoster Vaccines (1 of 2) 2023 Depression Screening 07/05/2023 07/04/2022, 07/05/19 23 COVID-19 Vaccine (3 - season) 2023 04/18/2021, 09/22/2020 Influenza Vaccine (#1) 2023 , 02/20/2019, 04/25/2018, Additional history exists SDOH Screening 12/20/2023 12/19/2022 Dental Oral Exam 08/28/2024 02/28/2024 Tobacco Screening 02/27/2025 02/28/2024 Dental X-Ray: Bitewings 02/28/2025 02/28/2024 DTaP/Tdap/Td Vaccines (2 - Td or Tdap) 03/28/2026 03/28/2016 Dental X-Ray: Full Mouth 02/28/2027 02/28/2024, 01/15 Lipid Panel 10/27/2027 10/26/2022, 07/15, 06/22/2020, Additional history exists RSV Patients and Patients Aged 60 years or older (1 - 1-dose 75+ series) 2048 HIV Screening Completed 05/18/2023, 03/15/2020 Hepatitis C Screening Completed 05/18/2023 HIB Vaccines Aged Out No longer eligi ble based on patient's age to complete this topic HPV Vaccines Aged Out No longer eligi ble based on patient's age to complete this topic Hepatitis A Vaccines Aged Out No long er eligible based on patient's age to complete this topic IPV Vaccines Aged Out No longer eligi ble based on patient's age to complete this topic Meningococcal Vaccine Aged Out No jose ravi eligible based on patient's age to complete this topic RSV under 20 months Aged Out No longe r eligible based on patient's age to complete this topic Rotavirus Vaccines Aged Out No longer eligible based on patient's age to complete this topic Procedures Procedure Name Priority Date/Time Associated Diagnosis Comments XR LUMBAR SPINE 2-3 VIEWS Routine 06/17/2024 11:23 AM EST Back muscle spasm INTRAORAL - COMPLETE SERIES OF RADIOGRAPHIC IMAGES Routine 02/28/2024 8:00 AM EST COMPREHENSIVE ORAL EVALUATION - NEW OR ESTABLISHED PATIENT Routine 02/28/2024 8:00 AM EST HEPATITIS C AB W/REFL TO HCV RNA, QN, PCR Routine 05/18/2023 2:28 PM EST Weakness HIV 1/2 ANTIGEN/ANTIBODY, FOURTH GENERATION W/RFL Routine 05/18/2023 2:28 PM EST Weakness LIPID PANEL, STANDARD Routine 10/26/2022 9:35 AM EDT from Last 3 Months or Most Recently Relevant to Health Maintenance Results * XR Lumbar Spine 2-3 Views (06/17/2024 11:23 AM EST) Anatomical Region Laterality Modality Spine, L-spine Radiographic Sallie ging 06/17/2024 11:2 3 AM EST Narrative 06/17/2024 12:32 PM EST ?[facility] [facility] ?[address] ?[place] [address] ?XRay Report ? Signed ? Patient: Diamond,Steven ?MR#: [id number] ?? 19 ? : 1975 ?Acct:[id number] ? Age/Sex: 49 / M ?ADM Date: 06/17/24 ? Loc: HO.HHCX ? Attending Dr: Cony Thomas MD ? Ordering Physician: Cony Thomas MD ?? Date of Service: 06/17/24 ?? Procedure(s): XR lumbar spine 2-3V ?? Accession Number(s): [id number] ? cc: Cony Thomas MD ? EXAMINATION: ?? XR LUMBOSACRAL SPINE ? CLINICAL INFORMATION: ?? 3 weeks l spine pain and muscle spasm ? COMPARISON: ?? December 04, 2017. ? TECHNIQUE: ?? Three views of the lumbosacral spine. ? FINDINGS: ?? Mild multilevel marginal osteophyte formation and endplate sclerosis ?? lower thoracic spine and lower lumbar spine. Facet joint hypertrophy ?? L5-S1. No acute cortical disruption or gross malalignment. No lytic or ?? blastic lesions. ? XR/XR lumbar spine 2-3V ?? IMPRESSION: ?? Spondylosis, mild. ? Electronically signed by: ??Guido Ivy MD ??06/17/2024 12:30 PM ?? EST RP ? Dictated By: ?Guido Nuñez MD ? Signed By: ?<Electronically signed by Guido Colby MD in OV> ? 06/17/24 1230 ? DD/ 1123 ? TD/TT: 06/17/24 1220 ? [employer] Associate: ? Procedure Note Jorge, Image - 06/17/2024 [facility] [address] [place] [address] XRay Report Signed Patient: Adam Diamond#: [id number] 19 : 1975Acct:[id number] Age/Sex: 49 / MADM Date: 06/17/24 Loc: HO.HHCX Attending Dr: Cony Thomas MD Ordering Physician: Cony Thomas MD Date of Service: 06/17/24 Procedure(s): XR lumbar spine 2-3V Accession Number(s): [id number] cc: Cony Thomas MD EXAMINATION: XR LUMBOSACRAL SPINE CLINICAL INFORMATION: 3 weeks l spine pain and muscle spasm COMPARISON: December 04, 2017. TECHNIQUE: Three views of the lumbosacral spine. FINDINGS: Mild multilevel marginal osteophyte formation and endplate sclerosis lower thoracic spine and lower lumbar spine. Facet joint hypertrophy L5-S1. No acute cortical disruption or gross malalignment. No lytic or blastic lesions. XR/XR lumbar spine 2-3V IMPRESSION: Spondylosis, mild. Electronically signed by: Guido Ivy MD 06/17/2024 12:30 PM EST RP Dictated By: Guido Nuñez MD Signed By: <Electronically signed by Guido Colby MDin OV> 06/17/24 1230 DD/ 1123 TD/TT: 06/17/24 1220 [employer] Associate: us Cony Thomas MD IMG XR PROCEDURES Final Re sult * Hepatitis C Antibody with Reflex to HCV, RNA, Quantitative, Real-Time PCR (05/18/2023 2:28 PM EST) Hepatitis C Antibody Nonreactive Nonreactive [facility] Comment:Antibodies to HCV no t detected; does not exclude early acuteHCV infection. Blood Venous blood specimen / Unknown 05/18/2023 2:28 PM EST 05/18/2023 4:02 PM EST us Reema Lopez MD LAB BLOOD ORDERAB LES Final Result [facility] [address] [place] [phone] * HIV-1/2 Antigen and Antibodies, Fourth Generation, with Reflexes (05/18/2023 2:28 PM EST) HIV AB/AG Nonreactive Nonreactive [facility] Comment:HIV-1 p24 Ag and/or HIV-1/HIV-2 Ab not detected.A test result that is nonreactive does not exclude thepossibility of exposure to or infection with HIV-1 and/orHIV-2. Nonreactive results in this assay for individualswith prior exposure to HIV-1 and/or HIV-2 may be due toantigen and antibody levels that are below the limit ofdetection of this assay.The [employer] HIV Ag/Ab Combo assay result andsupplemental assay results should be interpreted inconjunction with the patient's clinical presentation,history and other laboratory results. If the results areinconsistent with clinical evidence, additional testing issuggested to confirm the result. Blood Venous blood specimen / Unknown 05/18/2023 2:28 PM EST 05/18/2023 4:02 PM EST us Reema Lopez MD LAB BLOOD ORDERAB LES Final Result [facility] [address] [place] [phone] * Lipid Panel, Standard (10/26/2022 9:35 AM EDT) Triglycerides 155 mg/dL [facility] Comment:Desirable Triglyceri de: less than 150 mg/dLBorderline High Triglyceride 150-199 mg/dLHigh Triglyceride: 200-499 mg/dLVery High Triglyceride: greater than or equal to 5OO mg/dL Cholesterol 205 mg/dL [facility] Comment:Desirable Cholestero l: less than 200 mg/dLBorderline High Cholesterol: 200-239 mg/dLHigh Cholesterol: greater than 239 mg/dL LDL Cholesterol Calculated 139 mg/dl [facility] Comment:Desirable LDL: less than 100 mg/dLNear Optimal/Above Optimal LDL: 110- 129 mg/dLBorderline High LDL: 130-159 mg/dLHigh LDL: 160-189 mg/dLVery High LDL: greater than or equal to 190 mg/dL HDL Cholesterol 35 mg/dL [facility] Comment:Desirable HDL: great er than 40 mg/dL Note: This HDL assay may give artificially low results in patients with liver disease. 10/26/2022 9:35 AM EDT 10/26/2022 11:35 AM EDT [facility] External Provider LAB BLO OD ORDERABLES Final Result [facility] [address] [place] [address] [phone] from Last 3 Months or Most Recently Relevant to Health Maintenance Insurance [facility] C3 HSN FULL DENTAL-[facility] MEDICAID STAND ADULT Care Teams Sanding Machine Tender Relationship Specialty Start Date End Date Amy Moody ANP [address] [place] [phone] PCP - General Family Medicine 10/02/19
--- OUTSIDE RECORDS SUMMARY | 2024-06-17 14:19 | XMS_ITS | Clinical Summary ---
Author Organization [facility] ity Address [address] [place] [address] Care Team Providers Care Pasteurizing Supervisor Name Role Phone Unavailable Primary Care Provider Unavailabl e Social History Tobacco Use Types Packs/Day Years Used Date Smoking Tobacco: Never Assessed Sex and Gender Information Value Date Recorded Sex Assigned at Not on file Legal Sex Male 4:56 PM EST Gender Identity Not on file Sexual Orientation Not on file Plan of Treatment Health Maintenance Due Date Last Done Comments DTaP,Tdap,and Td Vaccines (1 - Tdap) 1992 Hepatitis B Vaccines (1 of 3 - 19+ 3-dose series) 1992 Cholesterol Screening (Lipid Panel) 03/15/2022 Colorectal Cancer Screening: Colonoscopy 03/15/2022 Depression Screening 03/15/2022 HIV Screening 03/15/2022 Hepatitis C Screening 03/15/2022 Social Influencers of Health Screening 03/15/2022 Pneumococcal Vaccine: 50+ Ye ars (1 of 1 - PCV) 2023 Zoster Vaccines (1 of 2) 2023 COVID-19 Vaccine (1 - 2023-2 5 season) 2023 Influenza Vaccine (#1) 2023 HIB Vaccines Aged Out No longer eligi [...] on patient's age to complete this topic MMR Vaccines Aged Out No longer eligi ble based on patient's age to complete this topic Meningococcal ACWY Vaccine Aged Out N o longer eligible based on patient's age to complete this topic Meningococcal B Vacine Aged Out No lo nger eligible based on patient's age to complete this topic Pneumococcal Vaccine: Pediat rics (0 to 5 Years) and At-Risk Patients (6 to 64 Years) Aged Out No longer eligible b ased on patient's age to complete this topic RSV Immunization Patients Un zoraida 20 months Aged Out No longer eligible b ased on patient's age to complete this topic Varicella Vaccines Aged Out No longer eligible based on patient's age to complete this topic
--- OUTSIDE RECORDS SUMMARY | 2024-06-17 14:19 | XMS_ITS | Encounter Summary ---
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 Name Role Phone Amy Moody Primary Care Provider [phone] Reason for Visit * Reason Onset Date Comments Call Back Request 06/17/2024 Encounter Details Date Type Department Care Team ([facility] st Contact Info) Description 06/17/2024 Telephone [facility] [address] [place], [place] [phone] Amy Moody ANP [address] [place] [address] Call Back Request Social History Tobacco Use Types Packs/Day Years Used Date Smoking Tobacco: Never Smokeless Tobacco: Never Alcohol Use Standard Drinks/Week Comments Never 0 [...] Orientation Straight 02/13/2022 10 :16 AM EDT documented as of this encounter Miscellaneous Notes * Telephone Encounter - Kareen Lee RN - 06/17/2024 1:44 PM EST TC placed to pt and LVM to call back the office * Telephone Encounter - Kathe Kearney - 06/17/2024 11:45 AM EST PT walked in asking for an appointment with PCP. I gave PT appt for next month 07/30/24 (soonest in person) but PT is concerned since he has been having blurry vision, dizzy ness and has fallen down continuously in the past few weeks. PT was seen in [facility] for lower back pain today 06/17/24 and did not want to go again back to back. PT would like a call to see what he can possibly do about getting a sooner appointment to rule out any major condition in regards to symptoms. PT is also asking for a referral for eye care to be evaluated for these symptoms. documented in this encounter Plan of Treatment Upcoming Encounters Date Type Department Care Team (Late st Contact Info) Description 07/30/2024 3:15 PM EDT Office Visit [facility] [address] [place] [address] Amy Moody ANP [address] [place] [address] documented as of this encounter Visit Diagnoses Not on filedocumented in this encounter Additional Health Concerns Assessment Noted Time PHQ-9 Depression Total Score: 7 07/05/19 23 4:41 PM EDT documented as of this encounter Care Teams Trestle Mainternance Laborer Relationship Specialty Start Date End Date Amy Moody ANP [address] [place] [address] PCP - General Family Medicine 10/02/19 documented as of this encounter
--- OUTSIDE RECORDS SUMMARY | 2024-06-17 14:20 | XMS_ITS | Encounter Summary ---
Demographics Address [address] [place] [address] Work Phone Mobile Phone Email Address Preferred Language en Marital Status Single Confucianist Affiliation Unknown Race Other Race Ethnic Group or Author Organization Where Cooperative Address [address] [facility] [address] [place] [address] Care Team Providers Care 3D Specialist Name Role Phone Amy Moody Primary Care Provider [phone] Reason for Referral * Consultation (Routine) - Pending Review Specialty Diagnoses / Procedures Referred By Marialuisa farley Referred To Contact Physical Therapy Diagnoses Back muscle spasm Cony Thomas MD [address] [place] [phone] Phone: tel: fax: Referral ID Status Reason Start Date Expiration Date Visits Requested Visits Authorized [id number] Pending Review Specialty Services Required 06/17/2024 06/17/2025 1 1 Reason for Visit * Reason Comments lower back pain Encounter Details Date Type Department Care Team ([facility] st Contact Info) Description 06/17/2024 10:40 AM EST Office Visit [facility] [address] [place] [address] [phone] Cony Thomas MD [address] [place] [address] [phone] Back muscle spasm (Primary Dx) Social History Tobacco Use Types Packs/Day Years [...] AM EDT documented as of this encounter Last Filed Vital Signs Vital Sign Reading Time Taken Comments Blood Pressure 138/84 06/17/2024 10:33 AM EST Pulse 72 06/17/2024 10:33 AM EST Temperature 37.2 ??C (98.9 ??F) 06/17/2024 10:[address] Respiratory Rate 18 06/17/2024 10:33 AM EST Oxygen Saturation 96% 06/17/2024 10:33 AM EST Inhaled Oxygen Concentration - - Weight 93.4 kg (206 lb) 06/17/2024 10:33 AM EST Height - - Body Mass Index 28.73 06/07/2023 1:57 PM EST documented in this encounter Progress Notes * Cony Thomas MD - 06/17/2024 10:40 AM EST Images from the original note were not included. Subjective Patient ID: Steven Diamond is a 49 y.o. male with past medical history of SIOMARA using CPAP. preDM, and hypertrygliceridemia who presents to walk in clinic for lower back pain. Pt reports back pain ongoing for about a month. He notes he had a similar pain many years ago. Pt points to low and mid back on bilateral sides. He reports pain is low back. Pt reports a couple weeksago he was lifting something and had acute onset of the pain. Denies any fevers, urinary incontinence, hematuria, back surgery or hx of IV drug use. He reports pain with sitting and standing up. Pt reports his left leg is not working. He notes he keeps falling when trying to bear weight on that leg. Pt reports minimal relief with cyclobenzaprine with quick recurrence despite the medication use. He also reports having some blurry vision and associated dizziness for many years. Denies recent follow-up with engineering technical specialist. Discussed getting follow-up with engineering technical specialist as well as PCP. Review of Systems Constitutional: Negative for fever and unexpected weight change. Respiratory: Negative for shortness of breath. Cardiovascular: Negative for chest pain. Gastrointestinal: Negative for abdominal pain. Genitourinary: Negative for difficulty urinating. Musculoskeletal: Positive for back pain. Objective Visit Vitals BP 138/84 (BP Location: Left arm, Patient Position: Sitting, BP Cuff Size: Adult) Pulse 72 Temp 98.9 ??F (37.2 ??C) (Temporal) Resp 18 Body mass index is 28.73 kg/m??. Physical Exam Constitutional: Appearance: Normal appearance. Cardiovascular: Rate and Rhythm: Normal rate. Pulmonary: Effort: Pulmonary effort is normal. Musculoskeletal: Thoracic back: Spasms (mid back, right worse than left, visible with naked eye without palpation) present. Lumbar back: Spasms and tenderness present. Neurological: Mental Status: Mental status is at baseline. Sensory: Sensation is intact. Motor: Motor function is intact. Deep Tendon Reflexes: Reflexes are normal and symmetric. Psychiatric: Behavior: Behavior normal. Problem List Items Addressed This Visit Back muscle spasm - Primary Severe muscle spasms in mid back, right worse than left, visible with naked eye without palpation. Spasms and tenderness in low back paraspinally. -ordered lumbar XRs -prescribed high dose ibuprofen and abumetone (Relafen) 500 MG for pain and spasms. Also prescribedlidocaine (Lidoderm) 5 % patch. -has tried muscle relaxer's without persistent relief -referred to PT Addendum FINDINGS: Mild multilevel marginal osteophyte formation and endplate sclerosis lower thoracic spine and lower lumbar spine. Facet joint hypertrophy L5-S1. No acute cortical disruption or gross malalignment. No lytic or blastic lesions. Relevant Medications nabumetone (Relafen) 500 MG tablet ibuprofen 800 MG tablet lidocaine (Lidoderm) 5 % patch Other Relevant Orders XR Lumbar Spine 2-3 Views (Completed) Referral to Physical Therapy -No evidence of acute disease process. Suspect severe muscle spasm. Symptoms moderate. -Will treat with NSAID, topical anesthetic and referred to PT. -ER precautions discussed. -Seek medical attention for worsening symptoms. I, Moraima Escobar, am serving as a scribe to document services personally performed by Dr. Rajput, based on the patient's response to questions by provider and providers statements to me. documented in this encounter Miscellaneous Notes * Assessment & Plan Note - Moraima Escobar - 06/17/2024 10:57 AM ESTAssociated Problem(s): Back muscle spasm Severe muscle spasms in mid back, right worse than left, visible with naked eye without palpation. Spasms and tenderness in low back paraspinally. -ordered lumbar XRs -prescribed high dose ibuprofen and abumetone (Relafen) 500 MG for pain and spasms. Also prescribedlidocaine (Lidoderm) 5 % patch. -has tried muscle relaxer's without persistent relief -referred to PT Addendum FINDINGS: Mild multilevel marginal osteophyte formation and endplate sclerosis lower thoracic spine and lower lumbar spine. Facet joint hypertrophy L5-S1. No acute cortical disruption or gross malalignment. No lytic or blastic lesions. documented in this encounter Plan of Treatment Upcoming Encounters Date Type Department Care Team (Late st Contact Info) Description 07/30/2024 3:15 PM EDT Office Visit [facility] [address] [place] [address] Amy Moody, ANP [address] [facility] [place] [address] Scheduled Referrals Name Type Priority Associated Diagnoses Orde r Schedule Referral to Physical Therapy Outpatient Referral Routine Back muscle spasm Expected: 06/17/2024 (Approximate), Expires: 06/17/2025 documented as of this encounter Procedures Procedure Name Priority Date/Time Associated Diagnosis Comments XR LUMBAR SPINE 2-3 VIEWS Routine 06/17/2024 11:23 AM EST Back muscle spasm documented in this encounter Results * XR Lumbar Spine 2-3 Views (06/17/2024 11:23 AM EST) Anatomical Region Laterality Modality Spine, L-spine Radiographic Sallie ging 06/17/2024 11:2 3 AM EST Narrative 06/17/2024 12:32 PM EST ?[facility] ?[address] ?[place] [address] ?XRay Report ? Signed ? Patient: Steven Diamond ?MR#: [id number] ?? 21 ? : 1975 ?Acct:[id number] ? Age/Sex: 49 / M ?ADM Date: 06/17/24 ? Loc: HO.HHCX ? Attending Dr: Cony Thomas MD ? Ordering Physician: Cony Thomas MD ?? Date of Service: 06/17/24 ?? Procedure(s): XR lumbar spine 2-3V ?? Accession Number(s): [id number] ? cc: Cony Thomas MD ? EXAMINATION: [...] DD/ 1123 ? TD/TT: 06/17/24 1220 ? Hospital Pharmacist: ? Procedure Note Jorge, Image - 06/17/[address] [address] XRay Report Signed Patient: Steven DiamondMR#: [id number] 21 : 1975Acct:[id number] Age/Sex: 49 / MADM Date: 06/17/24 Loc: HO.HHCX Attending Dr: Cony Thomas MD Ordering Physician: Cony Thomas MD Date of Service: 06/17/24 Procedure(s): XR lumbar spine 2-3V Accession Number(s): [id number] cc: Cony Thomas MD EXAMINATION: XR LUMBOSACRAL [...] Guido Ivy MD 06/17/2024 12:30 PM EST Dictated By: Guido Nuñez MD Signed By: <Electronically signed by Guido Colby MDin OV> 06/17/24 1230 DD/ 1123 TD/TT: 06/17/24 1220 Hospital Pharmacist: Cony Thomas MD IMG XR PROCEDURES Final Re sult documented in this encounter Visit Diagnoses Diagnosis Back muscle spasm- Primary Other symptoms referable to back documented in this encounter Additional Health Concerns Assessment Noted Time PHQ-9 Depression Total Score: 7 07/05/19 23 4:41 PM EDT documented as of this encounter Care Teams 3D Specialist Relationship Specialty Start Date End Date Amy Moody ANP [address] [place] [address] PCP - General Family Medicine 10/02/19 documented as of this encounter
--- OUTSIDE RECORDS SUMMARY | 2024-06-17 14:20 | XMS_ITS | Clinical Summary ---
Author Organization [facility] Address [address] [place] [address] Care Team Providers Care Corporate Treasurer Name Role Phone Jacek Duarte GRAPE CUTTER Primary Care Provider [phone] Source Comments PLEASE NOTE, if this patient is a minor, it may be UNLAWFUL to discuss sensitive information that is contained in these records (such as FAMILY PLANNING, MENTAL HEALTH or SUBSTANCE ABUSE) with the minor patient's parent or other person without the patient's specific authorization.[facility] Allergies No known active allergies Medications SUMAtriptan-napr oxen (TREXIMET) 85-500 mg per tabletIndication s:Intractable migraine with aura without status migrainosus Take 1 Tab by mouth once as needed for migraine for up to 1 dose May repeat in 2 hours if no relief. Do not exceed 2 tablets in 24 hours. 10 Tab 2 8 Active Active Problems Problem Noted Date Diagnosed Date Intractable migraine with aura without status mi grainosus 06/11/2017 Bilateral carpal tunnel syndrome 01/22/2015 Overview (01/28/2015): EMG studies done 01/2015 showed moderate severity bilateral carpal tunnel syndrome. Refer to a hand specialist Cough headache 11/03/2014 Gastritis 11/03/2014 Cough, persistent 11/03/2014 Obesity (BMI 30.0-34.9) 02/12/2014 Hypercholesterolemia 02/12/2014 Immunizations Name Administration Dates Next Due INFLUENZA, SEASONAL, INJECTABLE 03/28/2016,02/12 TDAP 03/28/2016 Family History Relation Name Status Comments Brother Alive Father Alive Mother Sister Alive Social History Tobacco Use Types Packs/Day Years Used Date Smoking Tobacco: Never Tobacco Cessation:Counseling Given: No Alcohol Use Standard Drinks/Week Comments No 0 (1 standard drink = 0.6 oz pur e alcohol) Social Connections Answer Date Recorded Social Connections and Isolation 0 12/08/2018 Financial Resource Strain Answer Date R ecorded Financial Resource Strain 0 2018 Stress Answer Date Recorded Stress 0 12/08/2018 Physical Activity Answer Date Recorded Physical Activity 0 12/08/2018 Food Insecurity Answer Date Recorded Food 0 12/08/2018 Transportation Needs Answer Date Record ed Transportation 0 12/08/2018 Housing Stability Answer Date Recorded Housing 0 12/08/2018 Safety and Environment Answer Date Fermín rded Safety 0 12/08/2018 Utilities Answer Date Recorded Utilities 0 12/08/2018 Employment Answer Date Recorded Employment 0 12/08/2018 Sex and Gender Information Value Date Recorded Sex Assigned at Male 06/11/2017 8:17 AM PST Legal Sex Male 11:38 AM PDT Gender Identity Male 06/11/2017 8:17 AM PST Sexual Orientation Don't know 06/11/2017 8: 17 AM PST Last Filed Vital Signs Vital Sign Reading Time Taken Comments Blood Pressure 121/69 06/11/2017 10:27 AM EST Pulse 78 06/11/2017 10:27 AM EST Temperature 37.1 ??C (98.7 ??F) 06/11/2017 10:[address] Respiratory Rate 16 06/11/2017 10:27 AM EST Oxygen Saturation 99% 10/14/2015 9:14 AM EDT Inhaled Oxygen Concentration - - Weight 98 kg (216 lb) 06/11/2017 10:27 AM EST Height 180.3 cm (5' 11 ) 03/28/2016 9:12 AM EST Body Mass Index 30.13 03/28/2016 9:12 AM EST Plan of Treatment Not on file Insurance [place] MEDICAID Care Teams Corporate Treasurer Relationship Specialty Start Date End Date Jacek Duarte NP [address] [place] [address] [facility] - General 06/11/18
== END 2024-06-17 11:23 | disposition home or self-care (01) ==
LOC: HO.HHCX 11:22
PROVIDERS: Visit Provider Family Medicine
DX: M62.830 Muscle spasm of back (principal)
CPT/HCPCS: 72100

== ENCOUNTER → 2024-06-17 11:23 | Outpatient (BNV) | payer MEDICAID, SELFPAY | PROVIDERS: Visit Provider Radiology Diagnostic Radiology | DX: M62.830 Muscle spasm of back (principal) | CPT/HCPCS: 72100 ==

== ENCOUNTER 2024-11-22 07:18 | Outpatient (REF) | payer MEDICAID, SELFPAY ==
--- NOTE | ~2024-11-22 | MR_ITS ---
EXAMINATION: MR BRAIN WITHOUT CONTRAST CLINICAL INFORMATION: Headache. Memory loss. COMPARISON: None available. TECHNIQUE: MRI of the brain was obtained using routine sequences without contrast. FINDINGS: No restricted diffusion. No acute intracranial hemorrhage, mass effect, midline shift, hydrocephalus or herniation. Lemos-white matter differentiation is normal. No signal abnormality or volume loss in the hippocampi. Flow-void signal within the main cerebral vessels is normal. Posterior cranial fossa contents demonstrated no signal abnormality or mass effect. Normal position of the cerebellar tonsils. Sellar/suprasellar region demonstrated no signal abnormality or gross masses. MR/MR head/brain wo con IMPRESSION: No acute or structural brain abnormality. Electronically signed by: Guido Ivy MD 11/24/2024 07:13 AM EDT
--- OUTSIDE RECORDS SUMMARY | 2024-11-22 07:22 | XMS_ITS | Clinical Summary ---
Author Organization [facility] Address [address] [place] [address] Care Team Providers Care Seismograph Recorder Name Role Phone Unavailable Primary Care Provider [...] Panel) 03/15/2022 Colorectal Cancer Screening: Colonoscopy 03/15/2022 HIV Screening 03/15/2022 Hepatitis C Screening 03/15/2022 Social Influencers of Health Screening 03/15/2022 Pneumococcal Vaccine: 50+ Ye ars (1 of 1 - PCV) 2023 Zoster Vaccines (1 of 2) 2023 COVID-19 Vaccine (1 - 2023-2 5 season) 2023 Depression Screening 04/16/2024 Influenza Vaccine (#1) 2024 HIB Vaccines Aged Out No longer eligi [...] age to complete this topic Meningococcal B Vaccine Aged Out No l onger eligible based on patient's age to complete this topic RSV Immunization Patients Un zoraida 20 months Aged Out No longer eligible b ased on patient's age to complete this topic Varicella Vaccines Aged Out No longer eligible based on patient's age to complete this topic
--- OUTSIDE RECORDS SUMMARY | 2024-11-22 07:22 | XMS_ITS | Clinical Summary ---
Demographics Address [address] [facility] [address] [place] [address] Work Phone Mobile Phone Email Address Preferred Language en Marital Status Single Yarsani Affiliation Unknown Race Other Race Ethnic Group Unknown Author Organization [employer] Address [address] [facility] [address] [place] [address] Care Team Providers Care Band Lining Bander Name Role Phone MoodyAmy Primary Care Provider [phone] Allergies Active Allergy Reactions Criticality Noted Date Comments Oxycodone Hcl 07/15/2020 Other reaction(s): Unknown Medications * This document contains information received from the source organization and may not represent a complete record from that organization. cholecalciferol (Vitamin D-3) 50 MCG (1999 UT) capsule Take 1 capsule (50 mcg) by mouth in the morning. 90 capsule 3 3 Active albuterol 108 (90 Base) MCG/ACT inhalerIndicati ons:Subacute [...] medication interactions reviewed. 30 each 4 Active riboflavin (Vitamin B-2) 400 MG tablet Take 1 tablet by mouth Once per day. 4 Active Multiple Vitamins-Minera ls (Oncovite) tablet Take 1 tablet by mouth Once per day. Active nabumetone (Relafen) 500 MG tabletIndicatio ns:Back muscle spasm Take 1 tablet (500 mg) by mouth 2 times daily. 60 tablet 11 5 06/18/19 26 Active lidocaine (Lidoderm) 5 % patchIndication s:Back muscle spasm Apply 1 patch topically Once per day. Remove & discard patch within 12 hours or as directed by MD. 15 patch 2 5 Active Active Problems Problem Noted Date Diagnosed Date Cataplexy and narcolepsy 07/30/2024 Overview (07/30/2024): follows w/ [facility], [facility] Severe major depression with psychotic features 07/30/2024 Generalized anxiety disorder with panic attacks 07/30/2024 Back muscle spasm 06/17/2024 Assessment & Plan [...] hand specialist Obesity (BMI 30.0-34.9) 02/12/2014 Encounters * This document contains information received from the source organization and may not represent a complete record from that organization. Date Type Department Care Team Description 09/22/2024 Telephone [facility] [address] [place] [phone] Jacoby Christine MA Sept recall 09/15/2024 11:00 AM EDT Office Visit [facility] [address] [place] [address] Amy Moody ANP Cataplexy and narcolepsy (Primary Dx); Tachycardia; Obstructive sleep apnea syndrome; Cardiomegaly; Severe major depression with psychotic features (CMS/HCC); Memory loss 09/12/2024 Telephone [facility] [address] [place] [address] Amy Moody ANP chart prep 08/26/2024 Travel from Last 3 Months Immunizations Immunization Administration Dates Next Due Influenza injectable quadriv [...] Answer Date Recorded Patient Health Questionnaire-9 Score 23 07/30/2024 Patient Health Questionnaire-9 Score 23 07/30/2024 Last PHQ-9: Questionnaire Data Not on file 0 07/30/2024 Housing Stability Answer Date Recorded What is your housing situation today? I have julianne bueno 07/30/[address] you li ve. Do you have problems with any of the following? None of the above 07/30/2024 Food Insecurity Answer Date Recorded Within the past 12 months, y ou worried that your food would run out before you got money to buy more: Never True 07/30/2024 Within the past 12 months,th e food you bought just didn't last and you didn't have enough money to get more: Never True Transportation Answer Date Recorded In the past 12 months, has l ack of transportation kept you from medical appts, meetings, work or from getting things needed for daily living? No 07/30/2024 Utilities Answer Date Recorded In the past 12 months, has t he electric, gas, oil or water company threatened to shut off services in your home? No 07/30/2024 Depression Answer Date Recorded Patient Health Questionnaire-2 Score 6 07/30/2024 Internet Access Answer Date Recorded Internet Access Q1 Yes 07/30/2024 Internet Access Q2 Not on file 07/30/2024 Sex and Gender Information Value Date Recorded Sex Assigned at Male 02/13/2022 10:16 AM EDT Legal Sex Male 10:16 AM EDT Gender Identity Male 02/13/2022 10:16 AM EDT Sexual Orientation Straight 02/13/2022 10 :16 AM EDT Last Filed Vital Signs Vital Sign Reading Time Taken Comments Blood Pressure 126/72 09/15/2024 11:28 AM EDT Pulse 81 09/15/2024 11:28 AM EDT Temperature 37.2 C (98.9 F) 06/17/2024 10:33 AM EST Respiratory Rate 20 09/15/2024 11:28 AM EDT Oxygen Saturation 96% 06/17/2024 10:33 AM EST Inhaled Oxygen Concentration - - Weight 92.5 kg (204 lb) 09/15/2024 11:28 AM EDT Height 180.3 cm (5' 11 ) 09/15/2024 11:28 AM EDT Body Mass Index 28.45 09/15/2024 11:28 AM EDT Plan of Treatment Health Maintenance Due Date Last Done Comments CT Colonography 1975 Colonoscopy 1973 Colorectal Cancer Screening 1975 Dental Prophylaxis 1975 FIT DNA/Cologuard 1975 FIT 1975 FOBT 1975 Sigmoidoscopy 1975 Family Planning (PISQ) 1988 Hepatitis B Vaccines (1 of 3 - 19+ 3-dose series) 1992 Pneumococcal Vaccine: 50+ Years (1 of 1 - PCV) 2023 Zoster Vaccines (1 of 2) 2023 COVID-19 Vaccine (3 - season) 2023 04/18/2021, 09/22/2020 Dental Oral Exam 08/28/2024 02/28/2024 Influenza Vaccine (#1) 2024 , 02/20/2019, 04/25/2018, Additional history exists Depression Monitoring 01/29/2025 07/30/2024, 025 Dental X-Ray: Bitewings 02/28/2025 02/28/2024 Alcohol/Substance Use Screening 07/30/2025 07/30/2024 Disability Screening 07/30/2025 07/30/2024 SDOH Screening 07/30/2025 07/30/2024 Tobacco Screening 09/15/2025 09/15/2024 DTaP/Tdap/Td Vaccines (2 - Td or Tdap) [...] Procedure Name Priority Date/Time Associated Diagnosis Comments INTRAORAL - COMPLETE SERIES OF RADIOGRAPHIC IMAGES [...] Recently Relevant to Health Maintenance Results * Hepatitis C Antibody with Reflex to HCV, RNA, Quantitative, Real-Time PCR (05/18/2023 2:28 PM EST) Pathologist [facility] Hepatitis C Antibody Nonreactive Nonreactive [facility] Comment:Antibodies to HCV no t detected; does not exclude early acuteHCV infection. Blood Venous blood specimen / Unknown 05/18/2023 2:28 PM EST 05/18/2023 4:02 PM EST Reema Lopez MD LAB BLOOD ORDERAB LES Final Result Performing Organization Address City/[facility]/ZIP Co de Phone Number [facility] [address] [place] [address] [phone] * HIV-1/2 Antigen and Antibodies, Fourth Generation, with Reflexes (05/18/2023 2:28 PM EST) [facility] HIV AB/AG Nonreactive Nonreactive [facility] Comment:HIV-1 p24 Ag and/or HIV-1/HIV-2 Ab not detected.A test result that is nonreactive does not exclude thepossibility of exposure to or infection with HIV-1 and/orHIV-2. Nonreactive results in this assay for individualswith prior exposure to HIV-1 and/or HIV-2 may be due toantigen and antibody levels that are below the limit ofdetection of this assay.The [employer] HIV Ag/Ab Combo assay result andsupplemental assay results should be interpreted inconjunction with the patient's clinical presentation,history and other laboratory results. If the results areinconsistent with clinical evidence, additional testing issuggested to confirm the result. Blood Venous blood specimen / Unknown 05/18/2023 2:28 PM EST 05/18/2023 4:02 PM EST us Reema Lopez MD LAB BLOOD ORDERAB LES Final Result Performing Organization Address City/[facility]/ZIP Co de Phone Number [facility] [address] [place] [address] [phone] * Lipid Panel, Standard (10/26/2022 9:35 AM EDT) [facility] Triglycerides 155 mg/dL [facility] Comment:Desirable Triglyceri de: less than 150 mg/dLBorderline High Triglyceride 150-199 mg/dLHigh Triglyceride: 200-499 mg/dLVery High Triglyceride: greater than or equal to 5OO mg/dL Cholesterol 205 mg/dL [facility] Comment:Desirable Cholestero l: less than 200 mg/dLBorderline High Cholesterol: 200-239 mg/dLHigh Cholesterol: greater than 239 mg/dL LDL Cholesterol Calculated 139 mg/dl [facility] Comment:Desirable LDL: less than 100 mg/dLNear Optimal/Above Optimal LDL: 110- 129 mg/dLBorderline High LDL: 130-159 mg/dLHigh LDL: 160-189 mg/dLVery High LDL: greater than or equal to 190 mg/dL HDL Cholesterol 35 mg/dL [facility] Comment:Desirable HDL: great er than 40 mg/dL Note: This HDL assay may give artificially low results in patients with liver disease. 10/26/2022 9:35 AM EDT 10/26/2022 11:35 AM EDT [facility] External Provider LAB BLO OD ORDERABLES Final Result [facility] [address] [place] [phone] from Last 3 Months or Most Recently Relevant to Health Maintenance Insurance [facility] C[facility] [facility] STAND ADULT Care Teams Band Lining Bander Relationship Specialty Start Date End Date Amy Moody ANP [address] [place] [phone] PCP - General Family Medicine 10/02/19
--- OUTSIDE RECORDS SUMMARY | 2024-11-22 07:22 | XMS_ITS | Clinical Summary ---
Author Organization [facility] Address [address] [place] [phone] Phone Care Team Providers Care Investor Relations Director Name Role Phone Pcp, Unknown Primary Care Provider Unavailabl e Allergies No known active allergies Medications omega 3-xba-zbb-fish oil 1,000 mg (120 mg-180 mg) Cap Take 1 capsule by mouth daily. Active therapeutic multivitamin tablet Take 1 tablet by mouth daily. Active oxyCODONE 5 MG immediate release tablet Take 1 tablet (5 mg total) by mouth every 6 (six) hours as needed (severe pain). Partial fill ok 10 tablet 2 Active Active Problems No known active problems Social History Tobacco Use Types Packs/Day Years Used Date Smoking Tobacco: Never Smokeless Tobacco: Never Tobacco Cessation:Counseling Given: Not Answered Alcohol Use Standard Drinks/Week Comments Never 0 (1 standard drink = 0.6 oz pur e alcohol) Education Answer Date Recorded Are you interested in more education? Not on cuate e 08/11/2022 Are you concerned about learning? Not on file 08/11/2022 No 08/11/2022 No 08/11/2022 Digital Access Answer Date Recorded No 09/12/2022 No 09/12/2022 Reliable internet access at home? Not on file 09/12/2022 Device with a working camera? Not on file Intimate Partner Violence Answer Date R ecorded Are you denied basic needs s uch as food, clothing, or medical care? No 06/27/2023 In the past 12 months have y ou been in a relationship with a person who hurts, threatens, or tries to control you? No 06/27/2023 Are you denied basic needs s uch as food, clothing, or medical care? No 06/27/2023 In the past 12 months have y ou been in a relationship with a person who hurts, threatens, or tries to control you? No 06/27/2023 Sex and Gender Information Value Date Recorded Sex Assigned at Male 03/31/2022 4:07 PM EST Legal Sex Male 2:27 PM EST Gender Identity Male 06/27/2023 7:44 AM EDT Sexual Orientation Straight 03/31/2022 4: 07 PM EST Last Filed Vital Signs Vital Sign Reading Time Taken Comments Blood Pressure 137/91 06/27/2023 11:45 AM EDT Pulse 63 06/27/2023 11:45 AM EDT Temperature 36.7 C (98.1 F) 06/27/2023 11:45 AM EDT Respiratory Rate 12 06/27/2023 11:45 AM EDT Oxygen Saturation 99% 06/27/2023 11:45 AM EDT Inhaled Oxygen Concentration - - Weight 94.3 kg (208 lb) 06/27/2023 7:46 AM EDT Height 180.3 cm (5' 11 ) 06/27/2023 7:46 AM EDT Body Mass Index 29.01 06/27/2023 7:46 AM EDT Plan of Treatment Health Maintenance Due Date Last Done Comments LIPID PANEL 1973 DEPRESSION SCREENING 1985 HEPATITIS C SCREENING 1991 HIV ONE-TIME SCREENING (18-6 5 YEARS) 1991 COLOGUARD 2018 COLONOSCOPY 2018 COLORECTAL CANCER SCREENING 2018 FIT TEST 2018 FOBT 2018 SIGMOIDOSCOPY 2018 VIRTUAL COLONOSCOPY 2018 PNEUMOCOCCAL VACCINES (50+ years) (1 of 1 - PCV) 2023 ZOSTER VACCINES (1 of 2) 2023 COVID-19 VACCINE (3 - 2023-2 5 season) 2023 04/18/2021, 09/22/2020 Adult Td,Tdap Booster 03/28/2026 03/28/2016 SCREENING FOR DIABETES 06/26/2026 06/27/2023 SMOKING STATUS SCREENING (On ce After 26 Yrs) Completed 06/27/2023 HEPATITIS A VACCINES Aged Out No long er eligible based on patient's age to complete this topic HIB VACCINES Aged Out No longer eligi ble based on patient's age to complete this topic MENINGOCOCCAL VACCINES (ACWY) Aged Out No longer eligible based on patient's age to complete this topic MENINGOCOCCAL VACCINES (B) Aged Out N o longer eligible based on patient's age to complete this topic Medical Devices Not on file Insurance C3 ACO C3 ACO C3 ACO C3 ACO C3 ACO C3 [employer]CO TRAVELERS INSURANCE Care Teams Investor Relations Director Relationship Specialty Start Date End Date Pcp, Unknown PCP - General 03/31/22 Additional Source Comments The information contained in this document represents components of the legal health record. It is not the complete legal health record.[facility]
== END 2024-11-22 07:19 | disposition home or self-care (01) ==
LOC: HO.MRI 07:18
PROVIDERS: Visit Provider Nurse Practitioner Primary Care
DX: R41.3 Other amnesia (principal)
CPT/HCPCS: 70551

== ENCOUNTER → 2024-11-22 07:28 | Outpatient (BNV) | payer MEDICAID, SELFPAY | PROVIDERS: Visit Provider Radiology Diagnostic Radiology | DX: R51.9 Headache, unspecified (principal); R41.3 Other amnesia | CPT/HCPCS: 70551 ==

== ENCOUNTER 2025-03-16 09:33 | Outpatient (AMB) | payer MEDICAID, SELFPAY ==
--- NOTE | 2025-03-16 09:38 | MHC.OFFVIS ---
Vital Signs 03/16/25 09:39 Weight 213 lb BP 130/80 Blood Pressure Location Rt brachial Position Sitting Pulse 78 Pulse Source Pulse Oximeter Pulse Oximetry (%) 98 Oxygen Delivery Method Room Air Intake Visit Reasons: 1 year F/U Sleep- [facility] to [facility] Practice Lead Required: No Accompanied by: Self / Same As Patient Allergies No Known Allergies (No Known Allergies*) Allergy (Verified 01/04/24 10:59) HPI Comments Details: 50-yr-old male presents for a f/u visit for chronic migraines, and Sleep attacks. He is unable to use the cpap, due to forceful pressures on his face which suffocate him. He had a titration study and then cpap use became more tolerable, however the temperatures were too warm for him. He notices he is unable to breathe due to the temperatures. He uses nasal pillows and likes them better then the full face mask. Observed Seizure like activity He says he falls daily due to seizures like activity witnessed by his . He gets short of breath and he can't get a full breath of air, his legs go numb, and he can't feel his legs, his heart beats fast then he passes out. He denies shaking, tremors, drooling, biting his tongue, gritting teeth, eyes rolling into the back of his eyes, urinary or bowel incontinence. Migraines chronic daily lasting for hours start bilaterally, stabbing, pressure and pain 10/10 pulsating to the top of his head. He has photo/phonophobia, smells, and dizziness with loss of balance which lead to repeated falls. Denies n/v, vertigo. He takes a fiorect, and then an alleve which resolves the headaches. He says his head feels like it is exploding. Sumatriptan is ineffective will trial him on Rizatriptan. PMH He is using his old APAP machine, but it is not recording how long he typically uses it and feels the air coming through does not feel clean anymore. States on nights that he uses it, he uses it x's 8 plus hours. Sometimes, he tries to put on his CPAP, and falls asleep with the mask in his hands before he even puts the mask on. He states that he is having even more episodes of falling asleep when inactive. His most recent 90 day compliance report shows overall use 32% and residual AHI < 2/hr. Review of chart shows an in-lab split night PAP titration study in 2021 which showed AHI 80/hr, REM AHI 50/hr, w/ O2 leia 80% (SpO2 < 88% x's < 5min, and sleep onset of 0.4 minutes and REM sleep onset of 4.5 minutes. Pt endorses episodes of passing out when laughing since childhood. States this was better controlled last year, but has been worse in the past year. He denies h/o EBV infection.He denies family h/o narcolepsy or cataplexy. [facility] Medical History Carpal tunnel syndrome of right wrist Carpal tunnel syndrome of left wrist Diabetes HTN (hypertension) Social History Alcohol intake: never Patient Tobacco Use Status: Never used Tobacco Physical Exam Vital Signs: Last Vital Signs Pulse 78 03/16/25 09:39 BP 130/80 03/16/25 09:39 Pulse Ox 98 03/16/25 09:39 Oxygen Delivery Method Room Air 03/16/25 09:39 Const General: cooperative and no acute distress Orientation/consciousness: patient oriented x3 Resp Effort & Inspection: normal respiratory effort and able to speak in complete sentences Neuro Other: somnolent, slow to move and reply General: patient oriented x3 and moves all extremities Cranial nerves: Yes CN's II-XII intact bilaterally, Yes Nystagmus not present, Yes Midline tongue present, Yes Ability to bilaterally rotate head present and Yes Ability to bilaterally elevate shoulders present Cognition (Neuro): normal cognition Gait exam (Neuro): Normal gait present Motor exam (neuro): 5/5 motor strength present throughout and Normal motor muscle tone present throughout Deep tendon reflexes (DTR's): Right triceps reflex intensity grade: 2+, Left triceps reflex intensity grade: 2+, Rt Biceps (C5, C6): 2+, Left biceps reflex intensity grade: 2+, Right brachioradialis reflex intensity grade: 2+, Left brachioradialis reflex intensity grade: 2+, Right patellar reflex intensity grade: 2+ and Left patellar reflex intensity grade: 2+ Coordination: [id number] test normal Psych Appearance: well kempt Speech and movement: Slowed movement present (Neuro) Attitude: cooperative Thought process: Normal thought process present Results Reviewed Results Reviewed: FINDINGS: No restricted diffusion. No acute intracranial hemorrhage, mass effect, midline shift, hydrocephalus or herniation. Lemos-white matter differentiation is normal. No signal abnormality or volume loss in the hippocampi. Flow-void signal within the main cerebral vessels is normal. Posterior cranial fossa contents demonstrated no signal abnormality or mass effect. Normal position of the cerebellar tonsils. Sellar/suprasellar region demonstrated no signal abnormality or gross masses. MR/MR head/brain wo con IMPRESSION: No acute or structural brain abnormality. RESULT: 280 pg/mL REFERENCE RANGE: >200 pg/mL ADDITIONAL INFORMATION: Previous literature has defined CSF orexin-A/hypocretin-1 concentrations of </=110 pg/mL (low) as being consistent with narcolepsy type 1 (Onofre et. al. Arch Neurol 59: 1553-62;2002). Concentrations between 111 to 200 pg/mL are considered intermediate and have limited diagnostic utility for narcolepsy, as they may be patient services representative of other neurological disorder. Concentrations of >200 pg/mL ar considered normal. Assessment & Plan Assessment & Plan (1) Observed seizure-like activity: Comment: EEG Code(s): R56.9 - Unspecified convulsions Category: Medical (2) Sleep attack: Code(s): G47.419 - Narcolepsy without cataplexy Category: Medical (3) Hypersomnia: Code(s): G47.10 - Hypersomnia, unspecified Category: Medical (4) Excessive daytime sleepiness: Code(s): G47.19 - Other hypersomnia Category: Medical (5) Cataplexy: Comment: episodes of passing out when laughing since childhood a/w EDS Code(s): G47.411 - Narcolepsy with cataplexy Category: Medical (6) Severe obstructive sleep apnea: Comment: AHI 80/hr, O2 leia 80% Code(s): G47.33 - Obstructive sleep apnea (adult) (pediatric) Category: Medical (7) Chronic migraine without aura: Code(s): G43.709 - Chronic migraine without aura, not intractable, without status migrainosus Category: Medical Qualifiers: Status migrainosus presence: without status migrainosus Intractability: intractable Qualified Code(s): G43.719 - Chronic migraine without aura, intractable, without status migrainosus Plan Seizure like activity EEG r/o seizure Will start him on Fluoxetine 10mg po qam and titrate dose at next appt. CSF fluid indicates orexin levels 280 and he continues to have sleep attacks. For SIOMARA with excessive daytime sleepiness and hypersomia: PSG in lab with titration study, to determine ideal pressures, pt education re compliance reviewed today and > 4hours daily. For headache c/w chronic migraine w/o aura: Trial Riboflavin 400mg qam and Mag Ox 400mg qhs. Sumatriptan is ineffective will start him on Rizatriptan 10mg po prn or Ubrelvy 30mg po. May continue therapy with fiorect 50-325mg Trial Sumatriptan 100mg tab, 1/2 - 1 tab (50-100mg) at onset of headache, may repeat in 2 hours. Max of 2 tabs (200mg) per 24 hours. May adjunct with OTC Tylenol 650mg q 4 hours, Ibuprofen 600mg q 6 hours, or Naproxen 440mg q 12 hrs prn. For hypersomnia, SIOMARA, and episodes which are c/w cataplexy: Reviewed most recent in-lab PSG- results show very rapid sleep onset and REM sleep, which is supportive of a narcolepsy dx. Pt thus advsied to undergo LP for baseline CSF studies and ORXNA- Orexin-A/Hypocretin-1, Spinal Fluid level. Post-LP care reviewed w/ pt: rest, fluids, caffeine, prn Fioricet. Information shared with pt to learn more about narcolepsy and cataplexy s/s. Orders: Orders EEG Routine Today R56.9 - Unspecified convulsions RT PSG in-lab sleep titration Today G47.33 - Obstructive sleep apnea (adult) (pediatric) Medications: New fluoxetine 10 mg PO DAILY 90 caps 3RF sleep attacks 3 months MDD 10mg G47.10 - Hypersomnia, unspecified rizatriptan 5 mg orally; may repeat in 2 hours if headache does not abort. 14 tabs 3RF G43.719 - Chronic migraine without aura, intractable, without status migrainosus Refilled riboflavin (vitamin B2) 400 mg PO DAILY 30 tabs 6RF 30 days magnesium oxide 400 mg PO DAILY 30 tabs 6RF 30 days [id number]-ipfbbtrpegafg-cvhj 50-325-40 mg 1 - 2 tabs PO Q4-6H PRN 28 tabs 0RF post Lumbar puncture Headache 7 days Coding Level of Care Code Complex visit Add On G2211 Diagnoses Observed seizure-like activity R56.9 Sleep attack G47.419 Hypersomnia G47.10 Excessive daytime sleepiness G47.19 Cataplexy G47.411 Severe obstructive sleep apnea G47.33 Intractable chronic migraine without aura and without status migrainosus G43.719 Status migrainosus presence: without status migrainosus Intractability: intractable
[2025-03-16 09:39] VITALS: BP 130/80; PULSE 78; O2SAT 98
--- OUTSIDE RECORDS SUMMARY | 2025-03-16 11:18 | XMS_ITS | Clinical Summary ---
Author Organization [facility] ity Address [address] [place] [address] Care Team Providers Care Regulatory Affairs Associate Name Role Phone Unavailable Primary Care Provider Unavailabl e Social History Tobacco Use Types Packs/Day Years Used Date Smoking Tobacco: Never Assessed Sex and Gender Information Value Date Recorded Sex Assigned at Not on file Legal Sex Male 4:56 PM EST Gender Identity Not on file Sexual Orientation Not on file Plan of Treatment Health Maintenance Due Date Last Done Comments Colorectal Cancer Screening: Colonoscopy 1973 DTaP,Tdap,and Td Vaccines (1 - Tdap) 1992 Hepatitis B Vaccines (1 of 3 - 19+ 3-dose series) 1992 Cholesterol Screening (Lipid Panel) 03/15/2022 HIV Screening 03/15/2022 Hepatitis C Screening 03/15/2022 Social Influencers of Health Screening 03/15/2022 Pneumococcal Vaccine: 50+ Ye ars (1 of 1 - PCV) 2023 Zoster Vaccines (1 of 2) 2023 Depression Screening 04/16/2024 COVID-19 Vaccine (1 - 2024-2 6 season) 2024 Influenza Vaccine (#1) 2024 RSV Immunization Adult Patie nts (1 - 1-dose 75+ series) 2048 HIB Vaccines Aged Out No longer eligi [...]
--- OUTSIDE RECORDS SUMMARY | 2025-03-16 11:19 | XMS_ITS | Clinical Summary ---
Author Organization [facility] Address [address] [place] [id number] Phone Care Team Providers Care Scuba Dive Training Instructor Name Role Phone Pcp, Unknown Primary Care Provider Unavailabl e Allergies No known active allergies Medications omega 3-yez-qyi-fish oil 1,000 mg (120 mg-180 mg) Cap [...] HEPATITIS C SCREENING 1991 HIV ONE-TIME SCREENING (18-65 YEARS) 1991 COLOGUARD 2018 COLONOSCOPY 2018 COLORECTAL CANCER SCREENING 2018 FIT TEST 2018 FOBT 2018 SIGMOIDOSCOPY 2018 VIRTUAL COLONOSCOPY 2018 PNEUMOCOCCAL VACCINES (50+ years) (1 of 1 - PCV) 2023 ZOSTER VACCINES (1 of 2) 2023 INFLUENZA VACCINE (#1) 2024 , 02/20/2019, 04/25/2018, Additional history exists COVID-19 VACCINE ( - season) 2024 04/18/2021, 09/22/2020 Adult Td,Tdap Booster 03/28/2026 03/28/2016 SCREENING FOR DIABETES 06/26/2026 06/27/2023 RSV VACCINE (1 - 1-dose 75+ series) 2048 SMOKING STATUS SCREENING (Once After 26 Yrs) Completed 06/27/2023 HEPATITIS A [...] on file Insurance C3 ACO C3 ACO CARE COOPERATIVE C3 ACO C3 ACO C3 ACO C3 ACO TRAVELERS INSURANCE Care Teams Scuba Dive Training Instructor Relationship Specialty Start Date End Date Pcp, Unknown PCP - General 03/31/22 Additional Source Comments The information contained in this document represents components of the legal health record. It is not the complete legal health record.[facility]
--- OUTSIDE RECORDS SUMMARY | 2025-03-16 11:19 | XMS_ITS | Clinical Summary ---
Demographics Address [address] [place] [address] Work Phone Mobile Phone Email Address Preferred Language en Marital Status Single Rastafari Affiliation Unknown Race Other Race Ethnic Group Unknown Author Organization [employer] Address [address] [place] [address] Care Team Providers Care Director Of Early Childhood Education Name Role Phone FransiscoAmy Primary Care Provider [phone] Allergies Active Allergy Reactions Criticality Noted Date Comments Oxycodone Hcl 07/15/2020 Other reaction(s): Unknown Medications * This document contains information received from the source organization and may not represent a complete record from that organization. cholecalciferol (Vitamin D-3) 50 MCG (1999) capsule Take 1 capsule (50 mcg) by mouth in the morning. 90 capsule 3 07/29/19 23 025 Discontin ued(Thera py completed ) albuterol 108 (90 Base) MCG/ACT inhalerIndicati ons:Subacute cough Inhale 2 puffs every 6 (six) hours if needed for wheezing. 18 g 11 05/18/19 24 025 Discontin ued(Thera py completed ) fluticasone (Flonase) 50 MCG/ACT nasal spray Administer 1-2 sprays into each nostril in the morning for 14 days. Shake gently. Before first use, prime pump. After use, clean tip and replace cap. 16 g 05/18/19 24 025 Discontin ued(Thera py completed ) omega-3 1000 MG capsule capsuleIndicati ons:Hypertrigly ceridemia Take 1 capsule (1,000 mg) by mouth in the morning. 90 capsule 3 06/07/19 24 025 Discontin ued(Thera py completed ) Nirmatrelvir&Ri tonavir 300/100 (Paxlovid, 300/100,) 20 x 150 MG & 10 x 100MG tablet therapy packIndications :Infection caused by 2019 Novel Coronavirus Take 3 tablets by mouth 2 times daily. Take 2 tabs (300mg of nirmatrelvir) and 1 tab (100mg of ritonavir) PO BID for 5 days. No renal failure. Possible medication interactions reviewed. 30 each 10/08/19 24 Discontin ued(Thera py completed ) riboflavin (Vitamin B-2) 400 MG tablet Take 1 tablet by mouth Once per day. 11/02/19 24 025 Discontin ued(Thera py completed ) Multiple Vitamins-Minera ls (Oncovite) tablet Take 1 tablet by mouth Once per day. Discontin ued(Thera py completed ) nabumetone (Relafen) 500 MG tabletIndicatio ns:Back muscle spasm Take 1 tablet (500 mg) by mouth 2 times daily. 60 tablet 11 06/18/19 25 025 Discontin ued(Thera py completed ) lidocaine (Lidoderm) 5 % patchIndication s:Back muscle spasm Apply 1 patch topically Once per day. Remove & discard patch within 12 hours or as directed by MD. 15 patch 2 06/18/19 Discontin ued(Thera py completed ) Active Problems Problem Noted Date Diagnosed Date Cataplexy and narcolepsy 07/30/2024 Overview (07/30/2024): follows w/ [facility] Neurology clinic, [facility] [place] [facility] [place] Severe major depression with psychotic features (CMS/HCC) 07/30/2024 Generalized anxiety disorder with panic attacks [...] Encounters Date Type Department Care Team Description 02/13/2025 3:30 PM EDT Office Visit [facility] [place] [address] Jelani, Rocio, OD Presbyopia (Primary Dx); High grade hyperopia; Meibomian gland disease of both eyes, unspecified eyelid; 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 02/13/2025 Travel 12/22/2024 Results Follow-Up [facility] [address] [place] [id number] Amy Moody, PREET MR Brain w/o Contrast from Last 3 Months Immunizations Immunization Administration [...] 2023 Zoster Vaccines (1 of 2) 2023 Dental Oral Exam 08/28/2024 02/28/2024 COVID-19 Vaccine (3 - 2024- season) 2024 04/18/2021, 09/22/2020 Influenza Vaccine (#1) 2024 , 02/20/2019, 04/25/2018, Additional history exists Depression Monitoring 01/29/2025 07/30/2024, 025 Dental X-Ray: Bitewings 02/28/2025 02/28/2024 Alcohol/Substance Use Screening 07/30/2025 07/30/2024 Disability Screening 07/30/2025 07/30/2024 SDOH Screening 07/30/2025 07/30/2024 Tobacco Screening 03/02/2026 03/02/2025 DTaP/Tdap/Td Vaccines (2 - Td or Tdap) 03/28/2026 03/28/2016 Dental X-Ray: Full Mouth 02/28/2027 024, 02/07/2021, 02/07/2021 Lipid Panel 10/27/2027 10/26/2022, 07/15, 06/22/2020, Additional [...] PM EST) Hepatitis C Antibody Nonreactive Nonreactive [facility] Comment:Antibodies to HCV no t detected; does not exclude early acuteHCV infection. Blood Venous blood specimen / Unknown 05/18/2023 2:28 PM EST 05/18/2023 4:02 PM EST us Reema Lopez MD LAB BLOOD ORDERAB LES Final Result [facility] [address] [place] [phone] * HIV-1/2 Antigen and Antibodies, Fourth Generation, with Reflexes (05/18/2023 2:28 PM EST) HIV AB/AG Nonreactive Nonreactive [facility] Comment:HIV-1 p24 Ag and/or HIV-1/HIV-2 Ab not detected.A test result that is nonreactive does not exclude thepossibility of exposure to or infection with HIV-1 and/orHIV-2. Nonreactive results in this assay for individualswith prior exposure to HIV-1 and/or HIV-2 may be due toantigen and antibody levels that are below the limit ofdetection of this assay.The [employer] HIV Ag/Ab Combo assay result andsupplemental assay results should be interpreted inconjunction with the patient's clinical presentation,history and other laboratory results. If the results areinconsistent with clinical evidence, additional testing issuggested to confirm the result. Blood Venous blood specimen / Unknown 05/18/2023 2:28 PM EST 05/18/2023 4:02 PM EST us Reema Lopez MD LAB BLOOD ORDERAB LES Final Result Performing Organization Address [facility] Co de Phone Number [facility] [address] [place] [address] [phone] * Lipid Panel, Standard (10/26/2022 9:35 AM EDT) Triglycerides 155 mg/dL [facility] Comment:Desirable Triglyceri de: less than 150 mg/dLBorderline High Triglyceride 150-199 mg/dLHigh Triglyceride: 200-499 mg/dLVery High Triglyceride: greater than or equal to 5OO mg/dL Cholesterol 205 mg/dL [facility] Comment:Desirable Cholestero l: less than 200 mg/dLBorderline High Cholesterol: 200-239 mg/dLHigh Cholesterol: greater than 239 mg/dL LDL Cholesterol Calculated 139 mg/dl [facility] Comment:Desirable LDL: less than 100 mg/dLNear Optimal/Above Optimal LDL: 110- 129 mg/dLBorderline High LDL: 130-159 mg/dLHigh LDL: 160-189 mg/dLVery High LDL: greater than or equal to 190 mg/dL HDL Cholesterol 35 mg/dL [facility] Comment:Desirable HDL: great er than 40 mg/dL Note: This HDL assay may give artificially low results in patients with liver disease. 10/26/2022 9:35 AM EDT 10/26/2022 11:35 AM EDT [facility] External Provider LAB BLO OD ORDERABLES Final Result Performing Organization Address [facility] Co de Phone Number [facility] [address] [place] [address] [phone] from Last 3 Months or Most Recently Relevant to Health Maintenance Insurance [facility] C3 HSN PARTIAL HSN PARTIAL DENTAL-[facility] MEDICAID STAND ADULT * Guarantor: Steven [employer] Account Type Relation to Patient Date of Phone Billing Address Personal/Family Self [address] [place] [address] Care Teams Director Of Early Childhood Education Relationship Specialty Start Date End Date Amy Moody ANP [address] [place] [phone] PCP - General Family Medicine 10/02/19
== END 2025-03-16 10:35 | disposition home or self-care (01) ==
LOC: HO.HSMS 09:33
PROVIDERS: Visit Provider Physician Assistant Medical
DX: R56.9 Unspecified convulsions (principal); G47.419 Narcolepsy without cataplexy; G47.10 Hypersomnia, unspecified; G47.19 Other hypersomnia; G47.411 Narcolepsy with cataplexy; G47.33 Obstructive sleep apnea (adult) (pediatric); G43.719 Chronic migraine without aura, intractable, without status migrainosus
CPT/HCPCS: 99214

== ENCOUNTER → 2025-03-16 09:33 | Outpatient (BNVA) | payer MEDICAID, SELFPAY | PROVIDERS: Visit Provider Physician Assistant Medical | DX: G43.719 Chronic migraine without aura, intractable, without status migrainosus (principal); G47.19 Other hypersomnia; G47.411 Narcolepsy with cataplexy; G47.33 Obstructive sleep apnea (adult) (pediatric); Z79.899 Other long term (current) drug therapy | CPT/HCPCS: 99212 ==

== ENCOUNTER 2025-03-25 12:45 | Emergency (ER) | payer MEDICAID, SELFPAY ==
--- NOTE | ~2025-03-25 | CT_ITS ---
CLINICAL HISTORY: LLQ pain CT abdomen and pelvis with contrast Comparison: None available Findings: No consolidation at the lung bases. Unremarkable gallbladder and bladder. Subcentimeter low attenuating lesions in the spleen and left kidney. The prostate measures 4.7 cm in transverse dimension with mild intravesicular extension. Vas deferens calcifications. The other solid organs are unremarkable. No bowel dilation. A normal appendix is identified. Wall thickening versus underdistention of the distal colon. No aneurysm. No calcified atherosclerotic disease. No lymphadenopathy. No ascites. Small fat containing inguinal hernias No acute osseous abnormality. Impression: Wall thickening versus underdistention of the distal colon. Mild colitis could be considered. This document has been electronically signed by: Shobha Watkins MD on 03/25/2025 17:31:37
--- OUTSIDE RECORDS SUMMARY | 2025-03-25 10:20 | XMS_ITS | Encounter Summary ---
Demographics Address [address] [place] [address] Work Phone Mobile Phone Home Phone Email Address Preferred Language en Marital Status Single Lutheran Affiliation Unknown Race Other Race Ethnic Group Unknown Author Organization [employer] Address [address] [place] [address] Care Team Providers Care Concrete Rubber Name Role Phone Amy Moody Primary Care Provider [phone] Reason for Visit * Reason Comments Abdominal Pain Encounter Details Date Type Department Care Team ([facility] Contact Info) Description 03/25/2025 10:20 AM EST Office Visit [facility] [address] [place] [address] [phone] Christopher Velazquez MD [address] [place] [address] LLQ abdominal pain (Primary Dx) Social History Tobacco Use Types [...] Sign Reading Time Taken Comments Blood Pressure 145/85 03/25/2025 11:07 AM EST Pulse 77 03/25/2025 11:07 AM EST Temperature 36.7 C (98 F) 03/25/2025 11:07 AM EST Respiratory Rate 18 03/25/2025 11:07 AM EST Oxygen Saturation 98% 03/25/2025 11:07 AM EST Inhaled Oxygen Concentration - - Weight 96.2 kg (212 lb) 03/25/2025 11:07 AM EST Height - - Body Mass Index 29.57 09/15/2024 11:28 AM EDT documented in this encounter Progress Notes * Christopher Velazquez MD - 03/25/2025 10:20 AM EST Subjective Patient ID: Steven Diamond is a 50 y.o. male. HPI Steven woke this AM with LLQ pain that is constant, worse with moving, coughing; he drove here and the bumps made it worse. No fever, n/v/d, or urinary symptoms. Last bowel movement was this AM, no blood. Has not tried pain med. Has never had similar pain Past surgical history: neg Lives with . 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 Never smoked. No EtOH. Patient Active Problem List Diagnosis Date Noted Cataplexy and narcolepsy 07/30/2024 Severe major depression with psychotic features (CMS/HCC) (HCC) 07/30/2024 Generalized anxiety disorder with panic attacks 07/30/2024 Back muscle spasm 06/17/2024 Weakness 05/19/2023 Obstructive sleep apnea syndrome 07/04/2022 Cardiomegaly 07/04/2022 Pityriasis versicolor 04/25/2018 Hypertriglyceridemia 11/09/2017 Impaired fasting glucose 11/09/2017 Prehypertension 11/09/2017 Vitamin D deficiency 11/09/2017 Intractable migraine with aura without status migrainosus 06/11/2017 Bilateral carpal tunnel syndrome 01/22/2015 Obesity (BMI 30.0-34.9) 02/12/2014 The following portions of the chart were reviewed this encounter and updated as appropriate: Review of Systems Constitutional: Negative for fever. Respiratory: Negative for shortness of breath. Cardiovascular: Negative for chest pain. Gastrointestinal: Positive for abdominal pain. Skin: Negative for rash. Neurological: Negative for headaches. Objective Physical Exam Constitutional: Appearance: Normal appearance. HENT: Nose: Nose normal. Mouth/Throat: Mouth: Mucous membranes are moist. Pharynx: Oropharynx is clear. Eyes: Conjunctiva/sclera: Conjunctivae normal. Pupils: Pupils are equal, round, and reactive to light. Cardiovascular: Rate and Rhythm: Normal rate and regular rhythm. Heart sounds: No murmur heard. Pulmonary: Effort: Pulmonary effort is normal. Breath sounds: Normal breath sounds. Abdominal: General: Abdomen is flat. Palpations: Abdomen is soft. Tenderness: There is abdominal tenderness (marked LLQ). There is guarding and rebound. There is no right CVA tenderness or left CVA tenderness. Musculoskeletal: General: Normal range of motion. Cervical back: No tenderness. Skin: Findings: No rash. Neurological: Mental Status: He is alert. Gait: Gait is intact. Psychiatric: Mood and Affect: Mood normal. Behavior: Behavior normal. Procedures Assessment/Plan Diagnoses and all orders for this visit: LLQ abdominal pain ? Acute diverticulitis versus? Due to degree of discomfort, patient is going to the ED now for further evaluation and treatment. documented in this encounter Plan of Treatment Not on file documented as of this encounter Visit Diagnoses Diagnosis LLQ abdominal pain- Primary Abdominal pain, left lower quadrant documented in this encounter Additional Health Concerns Assessment Noted Time PHQ-9 Depression Total Score: 23 025 5:24 PM EDT documented as of this encounter Care Teams Concrete Rubber Relationship Specialty Start Date End Date Amy Moody ANP [address] [place] [address] PCP - General Family Medicine 10/02/19 documented as of this encounter
[2025-03-25 12:58] VITALS: BP 131/72; PULSE 71; RESP 20; TEMP 36.2; O2SAT 97; BMI 29.4
--- NOTE | 2025-03-25 12:59 | ED.ABDPAIN ---
HPI - Abdominal Pain General Chief Complaint: Abdominal Pain Stated Complaint: LLQ pain sent from [facility] Time Seen by Provider: 03/25/25 16:30 History of Present Illness ED Provider: David JUNG narrative: the patient is a 50-year-old male who says that he has no past abdominal surgical history. He says that he developed pain in his left lower abdomen or groin region earlier today. This came out of the blue. There was no inciting episode. He was not lifting. He has had no fever, sweats, chills. There has been no nausea or vomiting. He has never had pain like this before. There has been no injury. No painful urination. He does not feel that the pain is in his testicle. Related Data Home Medications ?Medication ?Instructions ?Recorded ?Confirmed omega-3 fatty acids 1,000 mg 1,000 mg PO DAILY 06/01/20 11/02/23 capsule (Fish Oil Concentrate) vitamin E 100 unit/0.25 mL oral unit PO 06/01/20 11/02/23 drops Previous Rx's ?Medication ?Instructions ?Recorded meclizine 25 mg tablet 25 mg PO TID PRN dizziness #30 tabs 09/16/20 amoxicillin 500 mg capsule 500 mg PO TID 10 days #30 caps 02/07/21 naproxen 500 mg tablet 500 mg PO BID PRN pain #20 tabs 02/07/21 melatonin 3 mg tablet See Rx Instructions PO BEDTIME PRN 06/28/23 sleep 30 days #90 tabs sumatriptan succinate 100 mg tablet 50 - 100 mg (0.5 - 1 x 100 mg) PO 11/02/23 .COMPLEX PRN migraine headache 30 days #12 tabs ndyfdwypkx-kmvuyncqytnbf-pzoqhdvs 1 - 2 tab PO Q4-6H PRN post Lumbar 03/17/25 50 mg-325 mg-40 mg tablet puncture Headache 7 days #28 tabs fluoxetine 10 mg capsule 10 mg PO DAILY sleep attacks 3 03/17/25 months #90 caps magnesium oxide 400 mg PO DAILY 30 days #30 tabs 03/17/25 riboflavin (vitamin B2) 400 mg 400 mg PO DAILY 30 days #30 tabs 03/17/25 tablet rizatriptan 5 mg tablet 5 mg PO .COMPLEX #14 tabs 03/17/25 acetaminophen 500 mg capsule 1,000 mg (2 x 500 mg) PO Q8H PRN 03/25/25 fever or pain #14 caps ibuprofen 400 mg tablet 400 mg PO Q6H PRN pain #14 tabs 03/25/25 Allergies Allergy/AdvReac Type Severity Reaction Status Date / Time No Known Allergies (No Known Allergy Verified 03/25/25 13:01 Allergies*) Review of Systems Review of Systems Yes all other systems are reviewed and are negative [facility] Past Medical History Medical History Carpal tunnel syndrome of right wrist Carpal tunnel syndrome of left wrist Diabetes HTN (hypertension) Social History Social History Alcohol intake: never Patient Tobacco Use Status: Never used Tobacco Smoked in Last 30 Days: No Use of substances other than those prescribed or required for medical reasons: No Advance Directives: No Advance Directives Information Provided: Yes Do you have a plan to hurt others: No Plan Physical Exam ED Vital Signs: Vital Signs - 24 hr 03/25/25 12:58 03/25/25 18:55 Temperature 97.1 F 97.6 F Pulse Rate 71 70 Respiratory Rate 20 16 Blood Pressure 131/72 136/80 Pulse Oximetry 97 95 Oxygen Delivery Method Room Air Room Air BMI result Body Mass Index 29.4 Const Other: The patient is awake and alert, pleasant cooperative. He has a muscular appearing 50-year-old. He did not appear in overt distress. Orientation/consciousness: patient oriented x3 HENMT Other: The face is symmetrical. Mucous membranes moist. Eyes Other: Pupils are round equal, conjunctivae are clear, extraocular movements intact Neck Neck: Yes normal visual inspection and Yes full ROM Resp Effort & Inspection: normal respiratory effort Auscultation: clear to auscultation bilaterally Cardio Rate: regular rate Rhythm: regular rhythm Heart sounds: S1 normal heart sound present and S2 normal heart sound present GI Other: The abdomen is soft. There may be some tenderness in the very lower portion of the left lower quadrant but for the most part the abdomen seems benign. Other: The patient is an uncircumcised male with the unremarkable external genitalia. Scrotal contents seems soft and non swollen. The patient seems to have tenderness with palpation of the left inguinal canal however. Invagination of the scrotum into the left inguinal canal seemed to caused discomfort. No definite hernia contents appreciated on this exam. No tenderness on the right side. Skin Other: The skin is dry and unremarkable Neuro General: patient oriented x3, moves all extremities, no focal motor deficits and CN's II-XI intact bilaterally Extrem Other: There is no calf swelling or tenderness. No asymmetry. No peripheral edema. Course Course Course Narrative: This is an RME: Additional HPI, ROS, PE not included below will be deferred to primary provider. RME assessment and note performed by: Johana Olguin PA-C This is a 61-mptr[age]asr-male, with a hx of HTN, who presents to the ED with complaints of LLQ pain which started this morning. Went to a walk in center today and was told to come to the ED for further evaluation. Abd is soft with TTP in the LLQ. Plan: Labs, UA, further ER eval needed Medical Decision Making Medical Decision Making MDM Narrative: The patient is a 50-year-old male who presents with the what seems to be primarily left groin pain. The pain started today. The patient denies any injury or any other action that seemed to precipitate the pain. There has been no vomiting. On physical exam the pain seems to be as much pain in the left groin or inguinal region as in the left lower abdomen. He has a an unremarkable white count and differential. He has had no vomiting. A CT scan of the abdomen and pelvis shows no definite acute findings, specifically it does not show any evidence of a hernia. The radiologist describes wall thickening versus underdistention of the distal colon. Mild colitis could be considered. I do not think this is a case of colitis. The patient was given a dose of ketorolac and acetaminophen with improvement in his pain. I explained to the patient I do not have a good explanation for his pain. He will be discharged with a prescriptions for ibuprofen and acetaminophen. He should follow up with his PCP. He should return if worse. Lab Data 03/25/25 13:28 03/25/25 13:28 Labs: Lab Results 03/25/25 03/25/25 Range/Units 13:28 15:40 WBC 5.4 (4.8-10.8) X10*3/uL RBC 4.25 L (4.60-5.80) X10*6/uL Hgb 13.2 L (14.0-18.0) g/dl Hct 41.1 L (42.0-52.0) % MCV 96.7 (80.0-98.0) fL MCH 31.1 (27.0-33.0) pg MCHC 32.1 (31.0-36.0) g/dl RDW 13.6 (11.0-16.0) % Plt Count 232 (160-400) X10*3/uL MPV 10.1 (9.4-12.4) fL Immature Gran % (Auto) 0.4 (0.0-0.4) % Neut % (Auto) 53.5 (45-73) % Lymph % (Auto) 34.8 (20-40) % Stewart % (Auto) 6.5 (2-11) % Eos % (Auto) 4.1 H (0-4) % Baso % (Auto) 0.7 (0-2) % Lymph # (Auto) 1.9 (1.2-4.9) X10*3/uL Stewart # (Auto) 0.4 (0.1-1.2) X10*3/uL Eos # (Auto) 0.2 (0.0-0.4) X10*3/uL Baso # (Auto) 0.0 (0.0-0.2) X10*3/uL Abs Immat Gran (auto) 0.02 (0.00-0.03) X10*3/uL Absolute Neuts (auto) 2.9 (2.0-8.3) x10*3/uL Absolute Nucleated RBC 0.000 (0.0-0.012) X10*3/uL Nucleated RBC % (auto) 0.0 (0.0-0.2) /100WBC ESR 116 H (1-20) MM/HR Sodium 135 (135-145) mmol/L Potassium 3.7 (3.3-5.1) mmol/L Chloride 108 (96-108) mmol/L Carbon Dioxide 26 (22-29) mmol/L Anion Gap 5 L (12-20) BUN 22 H (9-16) mg/dL Creatinine 0.99 (0.5-1.4) mg/dL Estim Creat Clear Calc 103.0 Estimated GFR > 60 Random Glucose 98 (60-115) mg/dL Calcium 9.1 (8.4-10.2) mg/dL Magnesium 1.9 (1.6-2.6) mg/dL Total Bilirubin 0.7 (0.0-1.0) mg/dL Direct Bilirubin 0.2 (0.0-0.5) mg/dL AST 25 (5-37) U/L ALT 26 (0-40) U/L Alkaline Phosphatase 72 (39-117) U/L C-Reactive Protein 0.30 (< or = 0.50) mg/dL Total Protein 10.8 H (6.5-8.0) g/dL Albumin 4.3 (3.5-5.0) g/dL Lipase 27 (8-78) U/L Urine Color Yellow Urine Appearance Clear Urine pH 5.0 (5.0-9.0) Ur Specific [place] 1.025 (1.005-1.025) Urine Protein Negative (Neg-Trace) mg/dL Urine Glucose (UA) Negative (Negative) mg/dL Urine Ketones Negative (Negative) mg/dL Urine Blood Negative (Negative) Urine Nitrite Negative (Negative) Ur Leukocyte Esterase Negative (Negative) Medications Administered Discontinued Medications Generic Name Dose Route Start Last Admin Trade Name Kikeq PRN Reason Stop Dose Admin Acetaminophen 975 mg 03/25/25 17:13 03/25/25 17:30 Acetaminophen 325 Mg Tablet PO 03/25/25 17:14 975 mg ONCE ONE Administration Iohexol 100 ml 03/25/25 16:38 03/25/25 16:42 Iohexol 350 Mg/Ml 100 Ml Infus..Btl IV 03/25/25 16:39 85 ml ONCE ONE Administration Ketorolac Tromethamine 15 mg 03/25/25 17:13 03/25/25 17:30 Ketorolac Tromethamine 15 Mg/Ml Vial IVPUSH 03/25/25 17:14 15 mg ONCE ONE Administration Discharge Plan Discharge Clinical Impression: Left groin pain Patient Disposition: Home, Self-Care Additional Instructions: Your testing in the emergency room today does not show any obvious explanation for your pain. There does not seem to be a hernia or other potentially surgical process at work. Please use ibuprofen and acetaminophen as needed for pain. Avoid activities which worsen your pain. Avoid lifting and straining. Please follow up with your regular doctor's office next week for a recheck. Return to the emergency room if you are significantly worse. Prescriptions: New ibuprofen 400 mg tablet 400 mg PO Q6H PRN (Reason: pain) Qty: 14 0RF acetaminophen 500 mg capsule 1,000 mg PO Q8H PRN (Reason: fever or pain) Qty: 14 0RF No Action meclizine 25 mg tablet 25 mg PO TID PRN (Reason: dizziness) Qty: 30 0RF amoxicillin 500 mg capsule 500 mg PO TID 10 Days Qty: 30 0RF naproxen 500 mg tablet 500 mg PO BID PRN (Reason: pain) Qty: 20 0RF omega-3 fatty acids [Fish Oil Concentrate] 1,000 mg capsule 1,000 mg PO DAILY vitamin E 100 unit/0.25 mL drops PO sumatriptan succinate 100 mg tablet 50 - 100 mg PO .COMPLEX PRN (Reason: migraine headache) 30 Days Qty: 12 6RF Rx Instructions: 50 - 100 mg orally at onset of headache, may repeat in 2 hrs PRN; max 2 tabs per day or 4 tabs/week (may take with Ibuprofen) fluoxetine 10 mg capsule 10 mg PO DAILY MDD 10mg 90 Days Qty: 90 3RF magnesium oxide 400 mg magnesium tablet 400 mg PO DAILY 30 Days Qty: 30 6RF rizatriptan 5 mg tablet 5 mg PO .COMPLEX Qty: 14 3RF Rx Instructions: 5 mg orally; may repeat in 2 hours if headache does not abort. endqbitfdw-vlqmgqmwwajqs-asoj 50-325-40 mg tablet 1 - 2 tab PO Q4-6H PRN (Reason: post Lumbar puncture Headache) 7 Days Qty: 28 0RF riboflavin (vitamin B2) 400 mg tablet 400 mg PO DAILY 30 Days Qty: 30 6RF melatonin 3 mg tablet See Rx Instructions PO BEDTIME PRN (Reason: sleep) 30 Days Qty: 90 1RF Rx Instructions: 1-3 tabs orally bedtime PRN; Referrals: Amy Moody, [facility] [employer] [Primary Care Provider, Internal Medicine] Interventions: ED Discharge Assessment Last Done: 03/25/25 18:55 Discharge Date/Time: 03/25/25 19:02 Print Language: Indonesian
[2025-03-25 13:32] LABS: MANUAL DIFF FLAG NO
[2025-03-25 13:36] LABS: Hematocrit 41.1 % (42.0-52.0); Hemoglobin 13.2 g/dl (14.0-18.0); Imm Gran Abs Auto 0.02 X10*3/uL (0.00-0.03); Imm Gran Pct Auto 0.4 % (0.0-0.4); Lymphocytes Absolute Auto 1.9 X10*3/uL (1.2-4.9); Mean Corpuscular HGB Conc 32.1 g/dl (31.0-36.0); Mean Corpuscular Hemoglobin 31.1 pg (27.0-33.0); Mean Corpuscular Volume 96.7 fL (80.0-98.0); NRBC Abs Auto 0.000 X10*3/uL (0.0-0.012); NRBC Pct Auto 0.0 /100WBC (0.0-0.2); Platelet Count 232 X10*3/uL (160-400); Red Blood Count 4.25 X10*6/uL (4.60-5.80); White Blood Count 5.4 X10*3/uL (4.8-10.8)
[2025-03-25 13:55] LABS: Alanine Aminotransferase 26 U/L (0-40); Albumin Level 4.3 g/dL (3.5-5.0); Alkaline Phosphatase 72 U/L (39-117); Anion Gap 5 (12-20); Aspartate Amino Transferase 25 U/L (5-37); Blood Urea Nitrogen 22 mg/dL (9-16); Calcium 9.1 mg/dL (8.4-10.2); Carbon Dioxide 26 mmol/L (22-29); Chloride 108 mmol/L (96-108); Creatinine Clr Calc Pharmacy 103.0; Estimated Glomerular Filt Rate > 60; Lipase 27 U/L (8-78); Magnesium 1.9 mg/dL (1.6-2.6); Potassium 3.7 mmol/L (3.3-5.1); Sodium 135 mmol/L (135-145); Total Protein 10.8 g/dL (6.5-8.0)
[2025-03-25 15:54] LABS: Appearance Urine Clear; Glucose Urine UA Negative (Negative); PH 5.0 (5.0-9.0); Specific Gravity - Urine 1.025 (1.005-1.025)
[2025-03-25] MEDS: iohexoL 350 MG/ML 100 ML INFUS..BTL IV (16:42)
[2025-03-25 18:55] VITALS: BP 136/80; PULSE 70; RESP 16; TEMP 36.4; O2SAT 95
--- OUTSIDE RECORDS SUMMARY | 2025-03-26 00:56 | XMS_ITS | Encounter Summary ---
Demographics Address [address] [place] [address] Work Phone Mobile Phone Home Phone Email Address Preferred Language en Marital Status Single Moravian Affiliation Unknown Race Other Race Ethnic Group Unknown Author Organization [employer] Address [address] [place] [address] Care Team Providers Care Production Repairer Name Role Phone Amy Moody Primary Care Provider [phone] Encounter Details Date Type Department Care Team ([facility] st Contact Info) Description 03/25/2025 Results Follow-Up [facility] [address] [place], [place] [id number] Amy Moody ANP [address] [place] [address] CBC auto differential, Hepatic Function Panel, Basic Metabolic Panel, Additional followed-up results: 5 Social History Tobacco Use Types Packs/Day Years [...] as of this encounter Miscellaneous Notes * Result Encounter Note - PREET Willoughby - 03/25/2025 5:04 PM EST Pt at ED documented in this encounter Plan of Treatment Not on file documented as of this encounter Visit Diagnoses Not on filedocumented in this encounter Additional Health Concerns Assessment Noted Time PHQ-9 Depression Total Score: 23 025 5:24 PM EDT documented as of this encounter Care Teams Production Repairer Relationship Specialty Start Date End Date Amy Moody ANP [address] [place] [id number] PCP - General Family Medicine 10/02/19 documented as of this encounter
--- OUTSIDE RECORDS SUMMARY | 2025-03-26 00:56 | XMS_ITS | Encounter Summary ---
Demographics Address [address] [place] [address] Work Phone Mobile Phone Home Phone Email Address Preferred Language en Marital Status Single Christian Affiliation Unknown Race Other Race Ethnic Group Unknown Author Organization [employer] Address [address] [place] [address] Care Team Providers Care Electronics Teacher Name Role Phone [place] Amy OVIEDO Primary Care Provider [phone] Encounter Details Date Type Department Care Team (Latest Contact Info) Description 03/25/2025 Travel Social History Tobacco Use Types Packs/Day Years [...] AM EDT documented as of this encounter Plan of Treatment Not on file documented as of this encounter Visit Diagnoses Not on filedocumented in this encounter Additional Health Concerns Assessment Noted Time PHQ-9 Depression Total Score: 23 025 5:24 PM EDT documented as of this encounter Care Teams Electronics Teacher Relationship Specialty Start Date End Date Amy Moody ANP [address] [place] [id number] PCP - General Family Medicine 10/02/19 documented as of this encounter
--- OUTSIDE RECORDS SUMMARY | 2025-03-26 00:56 | XMS_ITS | Encounter Summary ---
Demographics Address [address] [place] [address] Work Phone Mobile Phone Home Phone Email Address Preferred Language en Marital Status Single Buddhist Affiliation Unknown Race Other Race Ethnic Group Unknown Author Organization [employer] Address [address] [place] [address] Care Team Providers Care Family Counselor Name Role Phone Fransisco Gracie OVIEDO Primary Care Provider [phone] Encounter Details Date Type Department Care Team ([facility] st Contact Info) Description 03/25/2025 Orders Only GENERIC EXTERNAL DATA DEPARTMENT Provider, Generic External Data Social History Tobacco Use Types Packs/Day Years [...] on file documented as of this encounter Procedures Procedure Name Priority Date/Time Associated Diagnosis Comments CT ABDOMEN PELVIS W CONTRAST Routine 03/25/2025 5:31 PM EST URINALYSIS WITH REFLEX MICROSCOPIC Routine 03/25/2025 3:40 PM EST CBC WITH AUTO DIFFERENTIAL Routine 03/25/2025 1:28 PM EST SED RATE BY MODIFIED WESTERGREN Routine 03/25/2025 1:28 PM EST C-REACTIVE PROTEIN Routine 03/25/2025 1: 28 PM EST MAGNESIUM Routine 03/25/2025 1:28 PM EST LIPASE Routine 03/25/2025 1:28 PM EST HEPATIC FUNCTION PANEL Routine 03/25/2025 1:28 PM EST BASIC METABOLIC PANEL Routine 03/25/2025 1:28 PM EST documented in this encounter Results * CT Abdomen Pelvis w/ Contrast (03/25/2025 5:31 PM EST) Anatomical Region Laterality Modality Body, Pelvis, Abdomen Computed T omography 03/25/2025 5:31 PM EST Narrative 03/25/2025 5:32 PM EST [address] [address] [address] Scan Report Signed Patient: Steven Diamond MR#: [id number] 21 : 1975 Acct:[id number] Age/Sex: 50 / M ADM Date: 03/25/25 Loc: HO.ED Attending Dr: Ordering Physician: Johana Olguin Date of Service: 03/25/25 Procedure(s): CT abdomen pelvis w IV con Accession Number(s): [id number] cc: GRACIE HERNANDEZ [employer]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 Unremarkable gallbladder and bladder. Subcentimeter low attenuating lesions in the spleen and left kidney. The prostate measures 4.7 cm in transverse dimension with mild intravesicular extension. Vas deferens calcifications. The other solid organs are unremarkable. No bowel dilation. A normal appendix is identified. Wall thickening versus underdistention of the distal colon. No aneurysm. No calcified atherosclerotic disease. No lymphadenopathy. No ascites. Small fat containing inguinal hernias No acute osseous abnormality. Impression: Wall thickening versus underdistention of the distal colon. Mild colitis could be considered. This document has been electronically signed by: Shobha Watkins MD on 03/25/2025 17:31:37 Dictated By: Shobha Reinoso MD Signed By: <Electronically signed by Shobha Reinoso MD in OV> 03/25/25 173 DD/ 1731 TD/TT: 03/25/25 173 Marketing Proposal Coordinator: Procedure Note Donotuseinterpreter, Image - 03/25/[address] [place] [id number] [address] Scan Report Signed Patient: Steven DiamondMR#: [id number] 21 : 1975Acct:[id number] Age/Sex: 50 / MADM Date: 03/25/25 Loc: HO.ED Attending Dr: Ordering Physician: Johana Olguin Date of Service: 03/25/25 Procedure(s): CT abdomen pelvis w IV con Accession Number(s): [id number] cc: GRACIE HERNANDEZ ACCREDITED FARM MANAGER; Johana Olguin Report Number: [id number]: Total DLP = 694.00 mGy-cm Reason for Exam: LLQ pain CLINICAL HISTORY: LLQ pain CT abdomen and pelvis with contrast Comparison: None available Findings: No consolidation at the lung bases. Unremarkable gallbladder and bladder. Subcentimeter low attenuating lesions in the spleen and left kidney. The prostate measures 4.7 cm in transverse dimension with mild intravesicular extension. Vas deferens calcifications. The other solid organs are unremarkable. No bowel dilation. A normal appendix is identified. Wall thickening versus underdistention of the distal colon. No aneurysm. No calcified atherosclerotic disease. No lymphadenopathy. No ascites. Small fat containing inguinal hernias No acute osseous abnormality. Impression: Wall thickening versus underdistention of the distal colon. Mild colitis could be considered. This document has been electronically signed by: Shobha Watkins MD on 03/25/2025 17:31:37 Dictated By: Shobha Reinoso MD Signed By: <Electronically signed by Shobha Reinoso MD in OV> 03/25/25 173 DD/ 173 TD/TT: 03/25/25 173 Marketing Proposal Coordinator: [facility] External Provider IMG CT PROCEDURES Final Result * Urinalysis w/reflex microscopic (03/25/2025 3:40 PM EST) Color Urine Yellow [facility] Appearance Urine Clear [facility] PH 5.0 5.0 - 9.0 [facility] Glucose Urine UA Negative Negative mg/dL [facility] Urine Blood Negative Negative [facility] Specific River - Urine 1.025 1.005 - 1.025 [facility] Urine Protein Negative Neg-Trace mg/dL [facility] Urine Ketones Negative Negative mg/dL [facility] Nitrite Urine Negative Negative [facility] Leukocyte Esterase Urine Negative Negative [facility] 03/25/2025 3:40 PM EST 03/25/2025 3:43 PM EST Narrative [facility] - 03/25/2025 3:59 PM EST [id number], Clean Catch Generic External Data Provider LAB URINE ORDERAB LES Final Result Performing Organization Address [facility] Co de Phone Number [facility] [address] [place] [phone] * (ABNORMAL) Sed Rate by Modified Westergren (03/25/2025 1:28 PM EST) Erythrocyte Sedimentation Rate 116(H) 1 - 20 MM/HR [facility] Comment:Patients with polycy themia and many hemoglobin abnormalitiesmay have depressed sed rates whereas patients with anemiamay have elevated sed rates. 03/25/2025 1:28 PM EST 03/25/2025 2:42 PM EST Generic External Data Provider LAB BLOOD ORDERAB LES Final Result Performing Organization Address [facility] Co de Phone Number [facility] [address] [place] [phone] * C-reactive Protein (03/25/2025 1:28 PM EST) Pathologist [facility] C Reactive Protein 0.30 < or = 0.50 mg/dL [facility] 03/25/2025 1:28 PM EST 03/25/2025 1:31 PM EST Generic External Data Provider LAB BLOOD ORDERAB LES Final Result Performing Organization Address City/[facility] Co de Phone Number [facility] [address] [place] [phone] * Lipase (03/25/2025 1:28 PM EST) Lipase 27 8 - 78 U/L [facility] 03/25/2025 1:28 PM EST 03/25/2025 1:31 PM EST us Generic External Data Provider LAB BLOOD ORDERAB LES Final Result Performing Organization Address City/[facility]/ZIP Co de Phone Number [facility] [address] [place] [phone] * Magnesium (03/25/2025 1:28 PM EST) Magnesium 1.9 1.6 - 2.6 mg/dL [facility] 03/25/2025 1:28 PM EST 03/25/2025 1:31 PM EST Generic External Data Provider LAB BLOOD ORDERAB LES Final Result Performing Organization Address [facility] Co de Phone Number [facility] [address] [place] [phone] * (ABNORMAL) Basic Metabolic Panel (03/25/2025 1:28 PM EST) Pathologist [facility] Sodium 135 135 - 145 mmol/L [facility] Potassium 3.7 3.3 - 5.1 mmol/L [facility] Chloride 108 96 - 108 mmol/L [facility] Carbon Dioxide 26 22 - 29 mmol/L [facility] Anion Gap 5(L) 12 - 20 [facility] Urea Nitrogen (BUN) 22(H) 9 - 16 mg/dL [facility] Creatinine, Serum 0.99 0.5 - 1.4 mg/dL [facility] Creatinine Clr Calc Pharmacy 103.0 [facility] Comment:eGFR (calculated fro m the MDRD study equation) and eCrCl(calculated from the Cockcroft-Gault equation) are based ondifferent parameters and may not yield comparable results.If eCrCl result is absurd, please check patient'sheight/weight. Estimated Glomerular Filt Rate >60 [facility] Comment:Chronic Kidney Disea se: Estimated GFR < 60 mL/min/1.09o7Giwyly Kidney Disease: Estimated GFR < 15 mL/min/1.73m2 Glucose 98 60 - 115 mg/dL [facility] Calcium 9.1 8.4 - 10.2 mg/dL [facility] 03/25/2025 1:28 PM EST 03/25/2025 1:31 PM EST Generic External Data Provider LAB BLOOD ORDERAB LES Final Result Performing Organization Address [facility] de Phone Number [facility] [address] [place] [phone] * (ABNORMAL) Hepatic Function Panel (03/25/2025 1:28 PM EST) Bilirubin, Total 0.7 0.0 - 1.0 mg/dL [facility] Bilirubin, Direct 0.2 0.0 - 0.5 mg/dL [facility] Aspartate Amino Transferase 25 5 - 37 U/L [facility] Alanine Aminotransferase 26 0 - 40 U/L [facility] Total Protein 10.8(H) 6.5 - 8.0 g/dL [facility] Albumin Level 4.3 3.5 - 5.0 g/dL [facility] Alkaline Phosphatase 72 39 - 117 U/L [facility] 03/25/2025 1:28 PM EST 03/25/2025 1:31 PM EST Generic External Data Provider LAB BLOOD ORDERAB LES Final Result Performing Organization Address City/[facility] Co de Phone Number [facility] [address] [place] [phone] * (ABNORMAL) CBC auto differential (03/25/2025 1:28 PM EST) White Blood Count 5.4 4.8 - 10.8 X10*3/uL [facility] Red Blood Count 4.25(L) 4.60 - 5.80 X10*6/uL [facility] Hemoglobin 13.2(L) 14.0 - 18.0 g/dl [facility] Hematocrit 41.1(L) 42.0 - 52.0 % [facility] Mean Corpuscular Volume 96.7 80.0 - 98.0 fL [facility] Mean Corpuscular Hemoglobin 31.1 27.0 - 33.0 pg [facility] Mean Corpuscular HGB Conc 32.1 31.0 - 36.0 g/dl [facility] Red Cell Distribution Width 13.6 11.0 - 16.0 % [facility] Platelet Count 232 160 - 400 X10*3/uL [facility] Mean Platelet Volume 10.1 9.4 - 12.4 fL [facility] Neutrophils Percent Auto 53.5 45 - 73 % [facility] Imm Gran Pct Auto 0.4 0.0 - 0.4 % [facility] Lymphocytes Percent Auto 34.8 20 - 40 % [facility] Monocytes Percent Auto 6.5 2 - 11 % [facility] Eosinophils Percent Auto 4.1(H) 0 - 4 % [facility] Basophils Percent Auto 0.7 0 - 2 % [facility] NRBC Pct Auto 0.0 0.0 - 0.2 /100WBC [facility] Neutrophils Absolute Auto 2.9 2.0 - 8.3 x10*3/uL [facility] Imm Gran Abs Auto 0.02 0.00 - 0.03 X10*3/uL [facility] Lymphocytes Absolute Auto 1.9 1.2 - 4.9 X10*3/uL [facility] Monocytes Absolute Auto 0.4 0.1 - 1.2 X10*3/uL [facility] Eosinophils Absolute Auto 0.2 0.0 - 0.4 X10*3/uL [facility] Basophils Absolute Auto 0.0 0.0 - 0.2 X10*3/uL [facility] NRBC Abs Auto 0.000 0.0 - 0.012 X10*3/uL [facility] 03/25/2025 1:28 PM EST 03/25/2025 1:31 PM EST us Generic External Data Provider LAB BLOOD ORDERAB LES Final Result [facility] [address] [place] [phone] documented in this encounter Visit Diagnoses Not on filedocumented in this encounter Additional Health Concerns Assessment Noted Time PHQ-9 Depression Total Score: 23 025 5:24 PM EDT documented as of this encounter Care Teams Family Counselor Relationship Specialty Start Date End Date Gracie Hernandez ANP [address] [place] [phone] PCP - General Family Medicine 10/02/19 documented as of this encounter
--- OUTSIDE RECORDS SUMMARY | 2025-03-26 00:56 | XMS_ITS | Clinical Summary ---
Author Organization [facility] ity Address [address] [place] [address] Care Team Providers Care General Production Manager Name Role Phone Unavailable Primary Care Provider [...]
--- OUTSIDE RECORDS SUMMARY | 2025-03-26 00:56 | XMS_ITS | Clinical Summary ---
Author Organization [facility] Address [address] [place] [phone] Phone Care Team Providers Care Wildlife Biology Internship Name Role Phone Pcp, Unknown Primary Care Provider Unavailabl e Allergies No known active allergies Medications omega [id number] oil 1,000 mg (120 mg-180 mg) Cap [...] [employer] Care Teams Wildlife Biology Internship Relationship Specialty Start Date End Date Pcp, Unknown PCP - General 03/31/22 Additional Source Comments The information contained in this document represents components of the legal health record. It is not the complete legal health record.[facility]
--- OUTSIDE RECORDS SUMMARY | 2025-03-26 00:56 | XMS_ITS | Clinical Summary ---
Demographics Address [address] [place] [address] Work Phone Mobile Phone Home Phone Email Address Preferred Language en Marital Status Single Denominational Affiliation Unknown Race Other Race Ethnic Group Unknown Author Organization [employer] Address [address] [facility] [address] [place] [address] Care Team Providers Care Oral Surgery Assistant Name Role Phone Fransisco Gracie OVIEDO Primary Care Provider [phone] Allergies Active Allergy Reactions Criticality Noted Date [...] times daily. 60 tablet 11 06/18/19 25 Discontin ued(Thera py completed ) lidocaine (Lidoderm) 5 % patchIndication s:Back muscle spasm Apply 1 patch topically Once per day. Remove & discard patch within 12 hours or as directed by MD. 15 patch 2 06/18/19 Discontin ued(Thera py completed ) Active Problems Problem Noted Date Diagnosed Date Cataplexy and narcolepsy 07/30/2024 Overview (07/30/2024): [place] [facility] [facility] [place] major depression with psychotic features (CMS/HCC) [...] Encounters Date Type Department Care Team Description 03/25/2025 10:20 AM EST Office Visit [facility] [address] [phone] Christopher Velazquez MD LLQ abdominal pain (Primary Dx) 03/25/2025 Results Follow-Up [facility] [address] [place] [address] Gracie Hernandez ANP CBC auto differential, Hepatic Function Panel, Basic Metabolic Panel, Additional followed-up results: 5 03/25/2025 Orders Only GENERIC EXTERNAL DATA DEPARTMENT Provider, Generic External Data 03/25/2025 Travel 02/13/2025 3:30 PM EDT Office Visit [facility] [address] [place] [address] Jelani, Rocio, OD Presbyopia (Primary Dx); High grade hyperopia; Meibomian gland disease of both eyes, unspecified eyelid; 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 02/13/2025 Travel from Last 3 Months Immunizations Immunization [...] (212 lb) 03/25/2025 11:07 AM EST Height 180.3 cm (5' 11 ) 09/15/2024 11:28 AM EDT Body Mass Index 29.57 09/15/2024 11:28 AM EDT Plan of Treatment [...] Dental Oral Exam 08/28/2024 02/28/2024 COVID-19 Vaccine ( season) 2024 04/18/2021, 09/22/2020 Influenza Vaccine (#1) 2024 0, 02/20/2019, 04/25/2018, Additional history exists Depression Monitoring 01/29/2025 07/30/2024, 025 Dental X-Ray: Bitewings 02/28/2025 02/28/2024 Alcohol/Substance Use Screening 07/30/2025 07/30/2024 Disability Screening 07/30/2025 07/30/2024 SDOH Screening 07/30/2025 07/30/2024 Tobacco Screening 03/25/2026 03/25/2025 DTaP/Tdap/Td Vaccines (2 - Td or Tdap) 03/28/2026 03/28/2016 Dental X-Ray: Full Mouth 02/28/2027 024, 02/07/2021, 02/07/2021 Lipid Panel 10/27/2027 10/26/2022, 04/1 12/2021, 06/22/2020, Additional history exists RSV Patients and [...] REFLEX MICROSCOPIC Routine 03/25/2025 3:40 PM EST SED RATE BY MODIFIED WESTERGREN Routine 03/25/2025 1:28 PM EST C-REACTIVE PROTEIN Routine 03/25/2025 1: 28 PM EST LIPASE Routine 03/25/2025 1:28 PM EST MAGNESIUM Routine 03/25/2025 1:28 PM EST BASIC METABOLIC PANEL Routine 03/25/2025 1:28 PM EST HEPATIC FUNCTION PANEL Routine 1:28 PM EST CBC WITH AUTO DIFFERENTIAL Routine 03/25/2025 1:28 PM EST INTRAORAL - COMPLETE SERIES OF RADIOGRAPHIC IMAGES [...] Recently Relevant to Health Maintenance Results * CT Abdomen Pelvis w/ Contrast (03/25/2025 5:31 PM EST) Anatomical Region Laterality Modality Body, Pelvis, Abdomen Computed T omography 03/25/2025 5:31 PM EST Narrative 03/25/2025 5:32 PM EST [address] [address] [address] Scan Report Signed Patient: Steven Diamond MR#: [id number] 21 : 1975 Acct:[id number] Age/Sex: 50 / M ADM Date: 03/25/25 Loc: HO.ED Attending Dr: Ordering Physician: Johana Olguin Date of Service: 03/25/25 Procedure(s): CT abdomen pelvis w IV con Accession Number(s): [id number] cc: GRACIE HERNANDEZ NP; Johana Olguin Report Number: [id number]: Total DLP = 694.00 mGy-cm Reason for [...] 173 DD/ 173 TD/TT: 03/25/25 173 Marketing Reporting Analyst: Procedure Note Donotuseinterpreter, Image - 03/25/[address] [place] [address] [address] Scan Report Signed Patient: Adam Diamond#: [id number] 21 : 1975Acct:[id number] Age/Sex: 50 / MADM Date: 03/25/25 Loc: HO.ED Attending Dr: Ordering Physician: Johana Olguin Date of Service: 03/25/25 Procedure(s): CT abdomen pelvis w IV con Accession Number(s): [id number] cc: GRACIE HERNANDEZ NP; Johana Olguin Report Number: [id number]: Total DLP = 694.00 mGy-cm Reason for [...] by Shobha Reinoso MD in OV> 03/25/25 1731 DD/ 1731 TD/TT: 03/25/25 173 Marketing Reporting Analyst: [facility] External Provider IMG CT PROCEDURES Final Result * Urinalysis w/reflex microscopic (03/25/2025 3:40 PM EST) Color Urine Yellow [facility] Appearance Urine Clear [facility] PH 5.0 5.0 - 9.0 [facility] Glucose Urine UA Negative Negative mg/dL [facility] Urine Blood Negative Negative [facility] Specific [place] - Urine 1.025 1.005 - 1.025 [facility] Urine Protein Negative Neg-Trace mg/dL [facility] Urine Ketones Negative Negative mg/dL [facility] Nitrite Urine Negative Negative [facility] Leukocyte Esterase Urine Negative Negative [facility] 03/25/2025 3:40 PM EST 03/25/2025 3:43 PM EST Narrative [facility] - 03/25/2025 3:59 PM EST [id number], Clean Catch us Generic External Data Provider LAB URINE ORDERAB LES Final Result [facility] [address] [place] [phone] * (ABNORMAL) CBC auto differential (03/25/2025 1:28 PM EST) White Blood Count 5.4 4.8 - 10.8 X10*3/uL [facility] Red Blood Count 4.25(L) 4.60 - 5.80 X10*6/uL [facility] Hemoglobin 13.2(L) 14.0 - 18.0 g/dl [facility] Hematocrit 41.1(L) 42.0 - 52.0 % [facility] Mean Corpuscular Volume 96.7 80.0 - 98.0 fL [facility] Mean Corpuscular Hemoglobin 31.1 27.0 - 33.0 pg [facility] Mean Corpuscular HGB Conc 32.1 31.0 - 36.0 g/dl [facility] Red Cell Distribution Width 13.6 11.0 - 16.0 % [facility] Platelet Count 232 160 - 400 X10*3/uL [facility] Mean Platelet Volume 10.1 9.4 - 12.4 fL [facility] Neutrophils Percent Auto 53.5 45 - 73 % [facility] Imm Gran Pct Auto 0.4 0.0 - 0.4 % [facility] Lymphocytes Percent Auto 34.8 20 - 40 % [facility] Monocytes Percent Auto 6.5 2 - 11 % [facility] Eosinophils Percent Auto 4.1(H) 0 - 4 % [facility] Basophils Percent Auto 0.7 0 - 2 % [facility] NRBC Pct Auto 0.0 0.0 - 0.2 /100WBC [facility] Neutrophils Absolute Auto 2.9 2.0 - 8.3 x10*3/uL [facility] Imm Gran Abs Auto 0.02 0.00 - 0.03 X10*3/uL [facility] Lymphocytes Absolute Auto 1.9 1.2 - 4.9 X10*3/uL [facility] Monocytes Absolute Auto 0.4 0.1 - 1.2 X10*3/uL [facility] Eosinophils Absolute Auto 0.2 0.0 - 0.4 X10*3/uL [facility] Basophils Absolute Auto 0.0 0.0 - 0.2 X10*3/uL [facility] NRBC Abs Auto 0.000 0.0 - 0.012 X10*3/uL [facility] 03/25/2025 1:28 PM EST 03/25/2025 1:31 PM EST Generic External Data Provider LAB BLOOD ORDERAB LES Final Result Performing Organization Address [facility] [[email or web address]] Co de Phone Number [facility] [address] [place] [phone] * (ABNORMAL) Sed Rate by Modified Westergren (03/25/2025 1:28 PM EST) Erythrocyte Sedimentation Rate 116(H) 1 - 20 MM/HR [facility] Comment:Patients with polycy themia and many hemoglobin abnormalitiesmay have depressed sed rates whereas patients with anemiamay have elevated sed rates. 03/25/2025 1:28 PM EST 03/25/2025 2:42 PM EST Generic External Data Provider LAB BLOOD ORDERAB LES Final Result Performing Organization Address [facility] [[email or web address]] Co de Phone Number [facility] [address] [place] [phone] * C-reactive Protein (03/25/2025 1:28 PM EST) C Reactive Protein 0.30 < or = 0.50 mg/dL [facility] 03/25/2025 1:28 PM EST 03/25/2025 1:31 PM EST Generic External Data Provider LAB BLOOD ORDERAB LES Final Result Performing Organization Address [facility] Phone Number [facility] [address] [place] [phone] * Magnesium (03/25/2025 1:28 PM EST) Magnesium 1.9 1.6 - 2.6 mg/dL [facility] 03/25/2025 1:28 PM EST 03/25/2025 1:31 PM EST Generic External Data Provider LAB BLOOD ORDERAB LES Final Result Performing Organization Address [facility] Phone Number [facility] [address] [place] [phone] * Lipase (03/25/2025 1:28 PM EST) Lipase 27 8 - 78 U/L [facility] 03/25/2025 1:28 PM EST 03/25/2025 1:31 PM EST Generic External Data Provider LAB BLOOD ORDERAB LES Final Result Performing Organization Address [facility] Phone Number [facility] [address] [place] [phone] * (ABNORMAL) Hepatic Function Panel (03/25/2025 1:28 PM EST) Bilirubin, Total 0.7 0.0 - 1.0 mg/dL [facility] Bilirubin, Direct 0.2 0.0 - 0.5 mg/dL [facility] Aspartate Amino Transferase 25 5 - 37 U/L [facility] Alanine Aminotransferase 26 0 - 40 U/L [facility] Total Protein 10.8(H) 6.5 - 8.0 g/dL [facility] Albumin Level 4.3 3.5 - 5.0 g/dL [facility] Alkaline Phosphatase 72 39 - 117 U/L [facility] 03/25/2025 1:28 PM EST 03/25/2025 1:31 PM EST us Generic External Data Provider LAB BLOOD ORDERAB LES Final Result Performing Organization Address [facility]/ZIP Co de Phone Number [facility] [address] [place] [phone] * (ABNORMAL) Basic Metabolic Panel (03/25/2025 1:28 PM EST) Sodium 135 135 - 145 mmol/L [facility] Potassium 3.7 3.3 - 5.1 mmol/L [facility] Chloride 108 96 - 108 mmol/L [facility] Carbon Dioxide 26 22 - 29 mmol/L [facility] Anion Gap 5(L) 12 - 20 [facility] Urea Nitrogen (BUN) 22(H) 9 - 16 mg/dL [facility] Creatinine, Serum 0.99 0.5 - 1.4 mg/dL [facility] Creatinine Clr Calc Pharmacy 103.0 [facility] Comment:eGFR (calculated fro m the MDRD study equation) and eCrCl(calculated from the Cockcroft-Gault equation) are based ondifferent parameters and may not yield comparable results.If eCrCl result is absurd, please check patient'sheight/weight. Estimated Glomerular Filt Rate >60 [facility] Comment:Chronic Kidney Disea se: Estimated GFR < 60 mL/min/1.22x8Oldjmg Kidney Disease: Estimated GFR < 15 mL/min/1.73m2 Glucose 98 60 - 115 mg/dL [facility] Calcium 9.1 8.4 - 10.2 mg/dL [facility] 03/25/2025 1:28 PM EST 03/25/2025 1:31 PM EST us Generic External Data Provider LAB BLOOD ORDERAB LES Final Result [facility] [address] [place] [phone] * Hepatitis C Antibody with Reflex to HCV, RNA, Quantitative, Real-Time PCR (05/18/2023 2:28 PM EST) Hepatitis C Antibody Nonreactive Nonreactive [facility] Comment:Antibodies to HCV no t detected; does not exclude early acuteHCV infection. Blood Venous blood specimen / Unknown 05/18/2023 2:28 PM EST 05/18/2023 4:02 PM EST Reema Lopez MD LAB BLOOD ORDERAB LES Final Result Performing Organization Address [facility]/ZIP Co de Phone Number [facility] [address] [place] [phone] * HIV-1/2 Antigen and Antibodies, Fourth Generation, with Reflexes (05/18/2023 2:28 PM EST) Pathologist [facility] HIV AB/AG Nonreactive Nonreactive [facility] Comment:HIV-1 p24 Ag and/or HIV-1/HIV-2 Ab not detected.A test result that is nonreactive does not exclude thepossibility of exposure to or infection with HIV-1 and/orHIV-2. Nonreactive results in this assay for individualswith prior exposure to HIV-1 and/or HIV-2 may be due toantigen and antibody levels that are below the limit ofdetection of this assay.[employer] HIV Ag/Ab Combo assay result andsupplemental assay results should be interpreted inconjunction with the patient's clinical presentation,history and other laboratory results. If the results areinconsistent with clinical evidence, additional testing issuggested to confirm the result. Blood Venous blood specimen / Unknown 05/18/2023 2:28 PM EST 05/18/2023 4:02 PM EST us Reema Lopez MD LAB BLOOD ORDERAB LES Final Result Performing Organization Address [facility]/ZIP Co de Phone Number [facility] [address] [place] [phone] * Lipid Panel, Standard (10/26/2022 9:35 AM EDT) Triglycerides 155 mg/dL [facility] Comment:Desirable Triglyceri de: less than 150 mg/dLBorderline High Triglyceride 150-199 mg/dLHigh Triglyceride: 200-499 mg/dLVery High Triglyceride: greater than or equal to 5OO mg/dL Cholesterol 205 mg/dL [facility] Comment:Desirable Cholestero l: less than 200 mg/dLBorderline High Cholesterol: 200-239 mg/dLHigh Cholesterol: greater than 239 mg/dL LDL Cholesterol Calculated 139 mg/dl [facility] Comment:Desirable LDL: less than 100 mg/dLNear Optimal/Above Optimal LDL: 110- 129 mg/dLBorderline High LDL: 130-159 mg/dLHigh LDL: 160-189 mg/dLVery High LDL: greater than or equal to 190 mg/dL HDL Cholesterol 35 mg/dL [facility] Comment:Desirable HDL: great er than 40 mg/dL Note: This HDL assay may give artificially low results in patients with liver disease. 10/26/2022 9:35 AM EDT 10/26/2022 11:35 AM EDT [facility] External Provider LAB BLO OD ORDERABLES Final Result [facility] [address] [place] [phone] from Last 3 Months or Most Recently Relevant to Health Maintenance Insurance * Guarantor: Steven Diamond Account Type Relation to Patient Date of Phone Billing Address Personal/Family Self [address] [place] [address] [facility] ST[place] AD[place] Care Teams Oral Surgery Assistant Relationship Specialty Start Date End Date Gracie Hernandez ANP [address] [place] [phone] PCP - General Family Medicine 10/02/19
== END 2025-03-25 19:02 | disposition home or self-care (01) ==
PROVIDERS: Physician Assistant Medical; Emergency Provider Emergency Medicine; PCP Nurse Practitioner Primary Care
DX: R10.32 Left lower quadrant pain (principal); E11.9 Type 2 diabetes mellitus without complications; I10 Essential (primary) hypertension; Z79.899 Other long term (current) drug therapy
CPT/HCPCS: 36415; 74177; 80048; 80076; 81003; 83690; 83735; 85025; 85652; 86140; 96374; 96375; 99284; 99285; J1885; Q9967

== ENCOUNTER → 2025-03-25 13:03 | Outpatient (BNV) | payer MEDICAID, SELFPAY | PROVIDERS: Emergency Provider Emergency Medicine; PCP Nurse Practitioner Primary Care; Visit Provider Radiology Diagnostic Radiology | DX: R10.32 Left lower quadrant pain (principal) | CPT/HCPCS: 74177 ==